=== PATIENT | female | born 1955 | race Caucasian/White ===

== ENCOUNTER 2021-02-27 09:25 | Inpatient (IN) | payer MEDICARE, SELFPAY ==
[2021-02-27] MEDS ORDERED: Acetaminophen 500 MG TAB PO PRN (11:06)
[2021-02-27] MEDS ORDERED: Ondansetron PF 4 MG/2 ML Vial IVP PRN (11:06)
[2021-02-27] MEDS ORDERED: Ondansetron ODT 4 MG TAB SL PRN (11:06)
[2021-02-27] MEDS ORDERED: methylPREDNISolone Sod Succ/PF 125 MG/2 ML VIAL IVP SCH (12:00)
[2021-02-27 12:22] LABS: ALT (SGPT) 28 U/L (8-55); AST (SGOT) 65 U/L (5-34); Albumin 3.3 g/dL (3.4-4.8); Alkaline Phosphatase 59 U/L (40-110); Anion Gap 18 mmol/L (10-20); BUN (Urea Nitrogen) 32 mg/dL (9.8-20.1); Bilirubin, Total 0.3 mg/dL (0.2-1.2); CRP (Inflammatory) 10.52 mg/dL (= or < 0.5); Calc. Creatinine Clearance 0 mL/min (70-130); Calcium 8.4 mg/dL (7.8-10.44); Carbon Dioxide 16 mmol/L (23-31); Chloride 105 mmol/L (98-107); Globulin 4.2 g/dL (2.4-3.5); Glucose 115 mg/dL (80-115); Potassium 4.4 mmol/L (3.5-5.1); Protein, Total 7.5 g/dL (5.8-8.1); Sodium 135 mmol/L (136-145)
[2021-02-27] MEDS ORDERED: Famotidine 20 MG TAB PO SCH (13:00)
[2021-02-27] MEDS ORDERED: Colchicine 0.6 MG TAB PO SCH (13:00)
[2021-02-27] MEDS ORDERED: Enoxaparin Sodium 40 MG/0.4 ML SYRINGE SC SCH (13:00)
[2021-02-27] MEDS ORDERED: Ivermectin 3 MG TAB PO SCH (15:00)
[2021-02-27] MEDS: REMDESIVIR 100 MG in Sodium Chloride 0.9% 250 ML 230 ML IV SCH (15:21)
[2021-02-27 15:45] LABS: Hemoglobin 14.3 g/dL (12.0-16.0); Mean Corpuscular HGB CONC 33.7 g/dL (32.0-36.0); Mean Corpuscular Hemoglobin 32.9 pg (27.0-31.0); Mean Corpuscular Volume 97.7 fL (78.0-98.0); Mean Platelet Volume 6.9 fL (7.4-10.4); Platelet Count 382 thou/uL (130-400); Red Blood Cell (RBC) Count 4.34 mill/uL (4.20-5.40); White Blood Cell (WBC) Count 8.3 thou/uL (4.8-10.8)
[2021-02-27 16:07] LABS: Band 1 % (5-11); Lymphocytes 3 % (21-51); MDiff Complete? YES; Monocytes 4 % (0-10); Neutrophil 92 % (42-75); Platelet Morphology Comment Appears Adequate; RBC Morphology Normal
[2021-02-27] MEDS: methylPREDNISolone Sod Succ/PF 80 MG in Sodium Chloride 0.9% 250 ML 250 ML IVPB SCH (16:35)
[2021-02-27] MEDS ORDERED: TOCILIZUMAB IV SCH (17:00)
[2021-02-27] MEDS ORDERED: SODIUM CHLORIDE 0.9% IV SCH (17:00)
[2021-02-27] MEDS: Colchicine 0.6 MG TAB PO SCH (20:01)
[2021-02-27] MEDS: Lorazepam 0.5 MG TAB PO PRN (20:01)
[2021-02-27] MEDS: Cholecalciferol 1,000 UNITS (25 MCG) TAB PO SCH (20:01)
[2021-02-27] MEDS: Ascorbic Acid 500 mg Chewable Tablet PO SCH (20:01)
[2021-02-27] MEDS: Enoxaparin Sodium 40 MG/0.4 ML SYRINGE SC SCH (20:02)
[2021-02-27] MEDS: Famotidine 20 MG TAB PO SCH (20:02)
[2021-02-27] MEDS: Benzonatate 100 MG CAP PO PRN (21:02)
[2021-02-28] MEDS: guaiFENesin/Codeine 200 mg/20 mg 10 ml Cup PO PRN ×2 (00:32→18:30)
[2021-02-28 06:41] LABS: #Lymphocytes 0.6 thou/uL (1.20-3.40); #Monocytes 0.4 thou/uL (0.11-0.59); #Neutrophils 4.4 thou/uL (1.40-6.50); %Eosinophils 0.1 % (0.0-10.0); %Lymphocytes 11.4 % (21.0-51.0); %Monocytes 7.5 % (0.0-10.0); Hemoglobin 13.3 g/dL (12.0-16.0); Mean Corpuscular HGB CONC 32.4 g/dL (32.0-36.0); Mean Corpuscular Hemoglobin 31.7 pg (27.0-31.0); Mean Corpuscular Volume 98.1 fL (78.0-98.0); Mean Platelet Volume 7.4 fL (7.4-10.4); Platelet Count 369 thou/uL (130-400); Red Blood Cell (RBC) Count 4.18 mill/uL (4.20-5.40); White Blood Cell (WBC) Count 5.4 thou/uL (4.8-10.8)
[2021-02-28 06:57] LABS: Anion Gap 17 mmol/L (10-20); BUN (Urea Nitrogen) 33 mg/dL (9.8-20.1); Calc. Creatinine Clearance 90 mL/min (70-130); Calcium 8.2 mg/dL (7.8-10.44); Carbon Dioxide 22 mmol/L (23-31); Chloride 104 mmol/L (98-107); Glucose 138 mg/dL (80-115); Potassium 4.5 mmol/L (3.5-5.1); Sodium 138 mmol/L (136-145)
[2021-02-28] MEDS: Ascorbic Acid 500 mg Chewable Tablet PO SCH ×2 (07:57→20:23)
[2021-02-28] MEDS: Colchicine 0.6 MG TAB PO SCH ×2 (07:58→20:23)
[2021-02-28] MEDS: Enoxaparin Sodium 40 MG/0.4 ML SYRINGE SC SCH ×2 (07:58→20:22)
[2021-02-28] MEDS: Zinc Sulfate 220 MG CAP PO SCH (07:58)
[2021-02-28] MEDS: Famotidine 20 MG TAB PO SCH ×2 (07:58→20:23)
[2021-02-28] MEDS: Benzonatate 100 MG CAP PO PRN ×2 (12:44→18:30)
[2021-02-28] MEDS: methylPREDNISolone Sod Succ/PF 80 MG in Sodium Chloride 0.9% 250 ML 250 ML IVPB SCH (12:45)
[2021-02-28] MEDS: REMDESIVIR 100 MG in Sodium Chloride 0.9% 250 ML 230 ML IV SCH (15:39)
[2021-02-28] MEDS: Loperamide HCl 2 MG CAP PO PRN ×3 (15:40→20:23)
[2021-02-28] MEDS: Lorazepam 0.5 MG TAB PO PRN (20:22)
[2021-02-28] MEDS: Cholecalciferol 1,000 UNITS (25 MCG) TAB PO SCH (20:23)
[2021-03-01 03:29] LABS: #Lymphocytes 0.6 thou/uL (1.20-3.40); #Monocytes 0.7 thou/uL (0.11-0.59); #Neutrophils 7.5 thou/uL (1.40-6.50); %Basophils 0.1 % (0.0-1.0); %Eosinophils 0.2 % (0.0-10.0); %Lymphocytes 7.1 % (21.0-51.0); %Neutrophils 84.6 % (42.0-75.0); Hemoglobin 13.7 g/dL (12.0-16.0); Mean Corpuscular HGB CONC 33.7 g/dL (32.0-36.0); Mean Corpuscular Volume 97.7 fL (78.0-98.0); Mean Platelet Volume 7.1 fL (7.4-10.4); Platelet Count 378 thou/uL (130-400); RBC Distribution Width 12.8 % (11.5-14.5); Red Blood Cell (RBC) Count 4.15 mill/uL (4.20-5.40); White Blood Cell (WBC) Count 8.9 thou/uL (4.8-10.8)
[2021-03-01 03:54] LABS: ALT (SGPT) 80 U/L (8-55); AST (SGOT) 93 U/L (5-34); Albumin 3.3 g/dL (3.4-4.8); Alkaline Phosphatase 59 U/L (40-110); Anion Gap 17 mmol/L (10-20); BUN (Urea Nitrogen) 27 mg/dL (9.8-20.1); Bilirubin, Total 0.6 mg/dL (0.2-1.2); Calc. Creatinine Clearance 127 mL/min (70-130); Calcium 7.8 mg/dL (7.8-10.44); Carbon Dioxide 17 mmol/L (23-31); Chloride 106 mmol/L (98-107); Globulin 3.3 g/dL (2.4-3.5); Glucose 144 mg/dL (80-115); Potassium 4.1 mmol/L (3.5-5.1); Protein, Total 6.6 g/dL (5.8-8.1); Sodium 136 mmol/L (136-145)
[2021-03-01] MEDS: Zinc Sulfate 220 MG CAP PO SCH (09:11)
[2021-03-01] MEDS: Famotidine 20 MG TAB PO SCH ×2 (09:11→19:33)
[2021-03-01] MEDS: Colchicine 0.6 MG TAB PO SCH ×2 (09:11→19:33)
[2021-03-01] MEDS: Ascorbic Acid 500 mg Chewable Tablet PO SCH ×2 (09:11→19:32)
[2021-03-01] MEDS: Enoxaparin Sodium 40 MG/0.4 ML SYRINGE SC SCH ×2 (09:12→19:33)
[2021-03-01] MEDS: guaiFENesin/Codeine 200 mg/20 mg 10 ml Cup PO PRN ×2 (09:24→16:21)
[2021-03-01] MEDS: Benzonatate 100 MG CAP PO PRN ×2 (09:24→16:21)
[2021-03-01] MEDS: methylPREDNISolone Sod Succ/PF 80 MG in Sodium Chloride 0.9% 250 ML 250 ML IVPB SCH (16:16)
[2021-03-01] MEDS: REMDESIVIR 100 MG in Sodium Chloride 0.9% 250 ML 230 ML IV SCH (16:16)
[2021-03-01] MEDS: Lorazepam 0.5 MG TAB PO PRN (19:32)
[2021-03-01] MEDS: Loperamide HCl 2 MG CAP PO PRN (19:33)
[2021-03-01] MEDS: Cholecalciferol 1,000 UNITS (25 MCG) TAB PO SCH (19:33)
[2021-03-02 03:26] LABS: #Lymphocytes 0.6 thou/uL (1.20-3.40); #Monocytes 0.5 thou/uL (0.11-0.59); #Neutrophils 7.8 thou/uL (1.40-6.50); %Eosinophils 0.2 % (0.0-10.0); %Lymphocytes 6.6 % (21.0-51.0); %Monocytes 6.1 % (0.0-10.0); %Neutrophils 87.1 % (42.0-75.0); Hemoglobin 13.7 g/dL (12.0-16.0); Mean Corpuscular HGB CONC 33.4 g/dL (32.0-36.0); Mean Corpuscular Hemoglobin 32.5 pg (27.0-31.0); Mean Corpuscular Volume 97.2 fL (78.0-98.0); Mean Platelet Volume 6.8 fL (7.4-10.4); Platelet Count 435 thou/uL (130-400); RBC Distribution Width 12.5 % (11.5-14.5); Red Blood Cell (RBC) Count 4.22 mill/uL (4.20-5.40); White Blood Cell (WBC) Count 8.9 thou/uL (4.8-10.8)
[2021-03-02 03:52] LABS: ALT (SGPT) 289 U/L (8-55); AST (SGOT) 172 U/L (5-34); Alkaline Phosphatase 66 U/L (40-110); Anion Gap 14 mmol/L (10-20); BUN (Urea Nitrogen) 24 mg/dL (9.8-20.1); Bilirubin, Total 0.9 mg/dL (0.2-1.2); CRP (Inflammatory) 1.91 mg/dL (= or < 0.5); Calc. Creatinine Clearance 133 mL/min (70-130); Calcium 7.8 mg/dL (7.8-10.44); Carbon Dioxide 20 mmol/L (23-31); Chloride 104 mmol/L (98-107); Globulin 3.2 g/dL (2.4-3.5); Glucose 139 mg/dL (80-115); Protein, Total 6.2 g/dL (5.8-8.1); Sodium 134 mmol/L (136-145)
[2021-03-02] MEDS ORDERED: Loratadine 10 MG TAB PO PRN (08:24)
[2021-03-02] MEDS ORDERED: Sodium Chloride 0.65% Nasal 44 ML BOT EA NARE PRN (08:24)
[2021-03-02] MEDS ORDERED: Bisacodyl 5 MG TAB PO PRN (08:24)
[2021-03-02] MEDS ORDERED: Cepastat Lozenges 1 LOZ PO PRN (08:24)
[2021-03-02] MEDS ORDERED: Calcium Carbonate 500 MG ChewTAB PO PRN (08:24)
[2021-03-02] MEDS ORDERED: Senokot S 8.6-50 MG TAB PO PRN (08:24)
[2021-03-02] MEDS: Enoxaparin Sodium 40 MG/0.4 ML SYRINGE SC SCH ×2 (09:46→20:00)
[2021-03-02] MEDS: Zinc Sulfate 220 MG CAP PO SCH (09:46)
[2021-03-02] MEDS: Ascorbic Acid 500 mg Chewable Tablet PO SCH ×2 (09:46→20:01)
[2021-03-02] MEDS: Colchicine 0.6 MG TAB PO SCH ×2 (09:46→20:02)
[2021-03-02] MEDS: Famotidine 20 MG TAB PO SCH ×2 (09:46→20:01)
[2021-03-02] MEDS: Benzonatate 100 MG CAP PO PRN ×3 (09:47→21:30)
[2021-03-02] MEDS: guaiFENesin/Codeine 200 mg/20 mg 10 ml Cup PO PRN ×3 (09:49→23:41)
[2021-03-02] MEDS: Loperamide HCl 2 MG CAP PO PRN ×3 (11:27→20:01)
[2021-03-02] MEDS: REMDESIVIR 100 MG in Sodium Chloride 0.9% 250 ML 230 ML IV SCH (15:09)
[2021-03-02] MEDS: methylPREDNISolone Sod Succ/PF 80 MG in Sodium Chloride 0.9% 250 ML 250 ML IVPB SCH (15:10)
[2021-03-02] MEDS: Cholecalciferol 1,000 UNITS (25 MCG) TAB PO SCH (20:01)
[2021-03-02] MEDS: Zolpidem Tartrate 5 MG TAB PO PRN (21:30)
[2021-03-03 03:54] LABS: #Eosinphils 0.1 thou/uL (0.0-0.7); #Lymphocytes 0.7 thou/uL (1.20-3.40); #Monocytes 0.5 thou/uL (0.11-0.59); #Neutrophils 7.9 thou/uL (1.40-6.50); %Eosinophils 0.6 % (0.0-10.0); %Lymphocytes 7.5 % (21.0-51.0); %Monocytes 5.3 % (0.0-10.0); %Neutrophils 86.6 % (42.0-75.0); Hemoglobin 14.2 g/dL (12.0-16.0); Mean Corpuscular HGB CONC 34.2 g/dL (32.0-36.0); Mean Corpuscular Hemoglobin 33.1 pg (27.0-31.0); Mean Corpuscular Volume 96.6 fL (78.0-98.0); Platelet Count 468 thou/uL (130-400); RBC Distribution Width 12.5 % (11.5-14.5); Red Blood Cell (RBC) Count 4.29 mill/uL (4.20-5.40); White Blood Cell (WBC) Count 9.1 thou/uL (4.8-10.8)
[2021-03-03 04:15] LABS: ALT (SGPT) 296 U/L (8-55); AST (SGOT) 111 U/L (5-34); Albumin 3.2 g/dL (3.4-4.8); Alkaline Phosphatase 74 U/L (40-110); Anion Gap 15 mmol/L (10-20); BUN (Urea Nitrogen) 21 mg/dL (9.8-20.1); Bilirubin, Total 0.8 mg/dL (0.2-1.2); Calc. Creatinine Clearance 131 mL/min (70-130); Calcium 7.7 mg/dL (7.8-10.44); Carbon Dioxide 21 mmol/L (23-31); Chloride 101 mmol/L (98-107); Glucose 133 mg/dL (80-115); Potassium 3.9 mmol/L (3.5-5.1); Protein, Total 6.2 g/dL (5.8-8.1); Sodium 133 mmol/L (136-145)
[2021-03-03] MEDS ORDERED: Albuterol Sulfate 2.5 mg/3 ml Neb NEB PRN (07:38)
[2021-03-03] MEDS: Loperamide HCl 2 MG CAP PO PRN ×3 (09:41→21:19)
[2021-03-03] MEDS: Benzonatate 100 MG CAP PO PRN ×3 (09:41→21:19)
[2021-03-03] MEDS: Enoxaparin Sodium 40 MG/0.4 ML SYRINGE SC SCH ×2 (09:41→21:19)
[2021-03-03] MEDS: guaiFENesin/Codeine 200 mg/20 mg 10 ml Cup PO PRN ×3 (09:41→22:36)
[2021-03-03] MEDS: Ascorbic Acid 500 mg Chewable Tablet PO SCH ×2 (09:41→21:19)
[2021-03-03] MEDS: Zinc Sulfate 220 MG CAP PO SCH (09:41)
[2021-03-03] MEDS: Colchicine 0.6 MG TAB PO SCH (09:41)
[2021-03-03] MEDS: methylPREDNISolone Sod Succ/PF 80 MG in Sodium Chloride 0.9% 250 ML 250 ML IVPB SCH (16:23)
[2021-03-03] MEDS: Zolpidem Tartrate 5 MG TAB PO PRN (21:19)
[2021-03-03] MEDS: Colchicine 0.3 MG TAB PO SCH (21:19)
[2021-03-03] MEDS: Cholecalciferol 1,000 UNITS (25 MCG) TAB PO SCH (21:19)
[2021-03-04] MEDS: guaiFENesin/Codeine 200 mg/20 mg 10 ml Cup PO PRN ×2 (04:19→16:37)
[2021-03-04 04:35] LABS: ALT (SGPT) 282 U/L (8-55); AST (SGOT) 101 U/L (5-34); Albumin 3.2 g/dL (3.4-4.8); Alkaline Phosphatase 76 U/L (40-110); Anion Gap 18 mmol/L (10-20); BUN (Urea Nitrogen) 23 mg/dL (9.8-20.1); Bilirubin, Total 0.6 mg/dL (0.2-1.2); CRP (Inflammatory) 0.64 mg/dL (= or < 0.5); Calc. Creatinine Clearance 119 mL/min (70-130); Carbon Dioxide 21 mmol/L (23-31); Chloride 100 mmol/L (98-107); Globulin 3.5 g/dL (2.4-3.5); Glucose 136 mg/dL (80-115); Magnesium 2.2 mg/dL (1.6-2.6); Potassium 4.9 mmol/L (3.5-5.1); Protein, Total 6.7 g/dL (5.8-8.1); Sodium 134 mmol/L (136-145)
[2021-03-04 04:49] LABS: Phosphorus 3.6 mg/dL (2.3-4.7)
[2021-03-04 05:02] LABS: Band 5 % (5-11); Lymphocytes 5 % (21-51); MDiff Complete? YES; Monocytes 8 % (0-10); Neutrophil 82 % (42-75)
[2021-03-04 05:03] LABS: Hemoglobin 14.7 g/dL (12.0-16.0); Mean Corpuscular HGB CONC 34.1 g/dL (32.0-36.0); Mean Corpuscular Hemoglobin 33.1 pg (27.0-31.0); Platelet Count 492 thou/uL (130-400); RBC Distribution Width 12.6 % (11.5-14.5); Red Blood Cell (RBC) Count 4.44 mill/uL (4.20-5.40); White Blood Cell (WBC) Count 13.6 thou/uL (4.8-10.8)
[2021-03-04] MEDS: Enoxaparin Sodium 40 MG/0.4 ML SYRINGE SC SCH ×2 (09:36→22:31)
[2021-03-04] MEDS: Ascorbic Acid 500 mg Chewable Tablet PO SCH ×2 (09:36→22:30)
[2021-03-04] MEDS: Zinc Sulfate 220 MG CAP PO SCH (09:36)
[2021-03-04] MEDS: Loperamide HCl 2 MG CAP PO PRN ×3 (09:36→22:31)
[2021-03-04] MEDS: Benzonatate 100 MG CAP PO PRN ×3 (09:36→22:31)
[2021-03-04] MEDS: Colchicine 0.3 MG TAB PO SCH ×2 (09:41→22:31)
[2021-03-04] MEDS: methylPREDNISolone Sod Succ/PF 80 MG in Sodium Chloride 0.9% 250 ML 250 ML IVPB SCH (16:37)
[2021-03-04] MEDS: Zolpidem Tartrate 5 MG TAB PO PRN (22:30)
[2021-03-04] MEDS: Cholecalciferol 1,000 UNITS (25 MCG) TAB PO SCH (22:31)
[2021-03-05] MEDS: guaiFENesin/Codeine 200 mg/20 mg 10 ml Cup PO PRN ×3 (01:29→21:20)
[2021-03-05 04:18] LABS: Anion Gap 18 mmol/L (10-20); BUN (Urea Nitrogen) 26 mg/dL (9.8-20.1); Calc. Creatinine Clearance 119 mL/min (70-130); Carbon Dioxide 20 mmol/L (23-31); Chloride 99 mmol/L (98-107); Glucose 199 mg/dL (80-115); Sodium 133 mmol/L (136-145)
[2021-03-05 04:43] LABS: Band 5 % (5-11); Eosinophils 1 % (0-10); Hemoglobin 14.9 g/dL (12.0-16.0); Lymphocytes 4 % (21-51); MDiff Complete? YES; Mean Corpuscular HGB CONC 34.6 g/dL (32.0-36.0); Mean Corpuscular Hemoglobin 33.3 pg (27.0-31.0); Mean Corpuscular Volume 96.2 fL (78.0-98.0); Metamyelocyte 1 % (0-0); Monocytes 4 % (0-10); Neutrophil 85 % (42-75); Platelet Count 529 thou/uL (130-400); RBC Distribution Width 12.5 % (11.5-14.5); Red Blood Cell (RBC) Count 4.47 mill/uL (4.20-5.40); White Blood Cell (WBC) Count 16.4 thou/uL (4.8-10.8)
[2021-03-05] MEDS: Benzonatate 100 MG CAP PO PRN ×2 (08:49→20:35)
[2021-03-05] MEDS: Loperamide HCl 2 MG CAP PO PRN (08:49)
[2021-03-05] MEDS: Colchicine 0.3 MG TAB PO SCH ×2 (10:56→20:34)
[2021-03-05] MEDS: Zinc Sulfate 220 MG CAP PO SCH (10:56)
[2021-03-05] MEDS: Enoxaparin Sodium 40 MG/0.4 ML SYRINGE SC SCH ×2 (10:56→20:34)
[2021-03-05] MEDS: Ascorbic Acid 500 mg Chewable Tablet PO SCH ×2 (10:56→20:34)
[2021-03-05] MEDS: methylPREDNISolone Sod Succ/PF 80 MG in Sodium Chloride 0.9% 250 ML 250 ML IVPB SCH (15:20)
[2021-03-05] MEDS: Cholecalciferol 1,000 UNITS (25 MCG) TAB PO SCH (20:35)
[2021-03-05] MEDS: Zolpidem Tartrate 5 MG TAB PO PRN (20:35)
[2021-03-06 03:36] LABS: ALT (SGPT) 160 U/L (8-55); AST (SGOT) 46 U/L (5-34); Albumin 3.2 g/dL (3.4-4.8); Alkaline Phosphatase 83 U/L (40-110); Anion Gap 18 mmol/L (10-20); BUN (Urea Nitrogen) 22 mg/dL (9.8-20.1); Bilirubin, Total 0.5 mg/dL (0.2-1.2); CRP (Inflammatory) Less than 0.50 mg/dL (= or < 0.5); Calc. Creatinine Clearance 122 mL/min (70-130); Carbon Dioxide 19 mmol/L (23-31); Chloride 100 mmol/L (98-107); Globulin 3.2 g/dL (2.4-3.5); Glucose 186 mg/dL (80-115); Potassium 4.2 mmol/L (3.5-5.1); Protein, Total 6.4 g/dL (5.8-8.1); Sodium 133 mmol/L (136-145)
[2021-03-06 04:02] LABS: Band 1 % (5-11); Hemoglobin 14.9 g/dL (12.0-16.0); Lymphocytes 4 % (21-51); MDiff Complete? YES; Mean Corpuscular HGB CONC 33.8 g/dL (32.0-36.0); Mean Corpuscular Hemoglobin 32.6 pg (27.0-31.0); Mean Corpuscular Volume 96.4 fL (78.0-98.0); Mean Platelet Volume 6.7 fL (7.4-10.4); Monocytes 2 % (0-10); Neutrophil 93 % (42-75); Platelet Count 563 thou/uL (130-400); Red Blood Cell (RBC) Count 4.58 mill/uL (4.20-5.40); White Blood Cell (WBC) Count 18.9 thou/uL (4.8-10.8)
[2021-03-06] MEDS: Benzonatate 100 MG CAP PO PRN ×3 (05:31→17:38)
[2021-03-06] MEDS: guaiFENesin/Codeine 200 mg/20 mg 10 ml Cup PO PRN ×3 (05:31→17:38)
[2021-03-06] MEDS: Ascorbic Acid 500 mg Chewable Tablet PO SCH ×2 (08:13→20:57)
[2021-03-06] MEDS: Colchicine 0.3 MG TAB PO SCH ×2 (08:13→20:57)
[2021-03-06] MEDS: Zinc Sulfate 220 MG CAP PO SCH (08:13)
[2021-03-06] MEDS: Enoxaparin Sodium 40 MG/0.4 ML SYRINGE SC SCH ×2 (08:14→20:58)
[2021-03-06] MEDS: Ivermectin 3 MG TAB PO SCH (11:13)
[2021-03-06] MEDS: methylPREDNISolone Sod Succ/PF 80 MG in Sodium Chloride 0.9% 250 ML 250 ML IVPB SCH (17:38)
[2021-03-06] MEDS: Lorazepam 0.5 MG TAB PO PRN (20:58)
[2021-03-06] MEDS: Cholecalciferol 1,000 UNITS (25 MCG) TAB PO SCH (20:58)
[2021-03-06] MEDS: Zolpidem Tartrate 5 MG TAB PO PRN (20:58)
[2021-03-07] MEDS ORDERED: traZODone HCl 50 MG TAB PO PRN (01:22)
[2021-03-07] MEDS ORDERED: Metoprolol Tartrate 5 MG/5 ML VIAL IVP PRN (01:41)
[2021-03-07 03:47] LABS: ALT (SGPT) 119 U/L (8-55); AST (SGOT) 46 U/L (5-34); Albumin 3.2 g/dL (3.4-4.8); Alkaline Phosphatase 89 U/L (40-110); Anion Gap 15 mmol/L (10-20); BUN (Urea Nitrogen) 24 mg/dL (9.8-20.1); Bilirubin, Total 0.6 mg/dL (0.2-1.2); CRP (Inflammatory) Less than 0.50 mg/dL (= or < 0.5); Calc. Creatinine Clearance 127 mL/min (70-130); Calcium 8.2 mg/dL (7.8-10.44); Carbon Dioxide 24 mmol/L (23-31); Chloride 97 mmol/L (98-107); Globulin 2.9 g/dL (2.4-3.5); Glucose 146 mg/dL (80-115); Magnesium 2.1 mg/dL (1.6-2.6); Phosphorus 3.7 mg/dL (2.3-4.7); Potassium 4.2 mmol/L (3.5-5.1); Protein, Total 6.1 g/dL (5.8-8.1); Sodium 132 mmol/L (136-145)
[2021-03-07 04:32] LABS: Band 7 % (5-11); Hemoglobin 14.4 g/dL (12.0-16.0); Lymphocytes 3 % (21-51); MDiff Complete? YES; Mean Corpuscular HGB CONC 34.3 g/dL (32.0-36.0); Mean Corpuscular Hemoglobin 32.9 pg (27.0-31.0); Mean Corpuscular Volume 95.8 fL (78.0-98.0); Mean Platelet Volume 6.6 fL (7.4-10.4); Monocytes 2 % (0-10); Neutrophil 88 % (42-75); Platelet Count 535 thou/uL (130-400); RBC Distribution Width 12.8 % (11.5-14.5); Red Blood Cell (RBC) Count 4.39 mill/uL (4.20-5.40); White Blood Cell (WBC) Count 22.1 thou/uL (4.8-10.8)
[2021-03-07] MEDS: Benzonatate 100 MG CAP PO PRN ×3 (04:42→20:11)
[2021-03-07] MEDS: guaiFENesin/Codeine 200 mg/20 mg 10 ml Cup PO PRN ×3 (04:42→20:16)
[2021-03-07] MEDS: Enoxaparin Sodium 40 MG/0.4 ML SYRINGE SC SCH ×2 (08:29→20:11)
[2021-03-07] MEDS: Zinc Sulfate 220 MG CAP PO SCH (08:29)
[2021-03-07] MEDS: Colchicine 0.3 MG TAB PO SCH ×2 (08:29→20:11)
[2021-03-07] MEDS: Ascorbic Acid 500 mg Chewable Tablet PO SCH ×2 (08:29→20:11)
[2021-03-07] MEDS: Ivermectin 3 MG TAB PO SCH (11:06)
[2021-03-07] MEDS: methylPREDNISolone Sod Succ/PF 80 MG in Sodium Chloride 0.9% 250 ML 250 ML IVPB SCH (14:31)
[2021-03-07] MEDS: Cholecalciferol 1,000 UNITS (25 MCG) TAB PO SCH (20:11)
[2021-03-07] MEDS: Zolpidem Tartrate 5 MG TAB PO PRN (21:47)
[2021-03-07] MEDS: Lorazepam 0.5 MG TAB PO PRN (21:47)
[2021-03-08 05:06] LABS: Hemoglobin 14.3 g/dL (12.0-16.0); Mean Corpuscular HGB CONC 32.5 g/dL (32.0-36.0); Mean Corpuscular Hemoglobin 31.3 pg (27.0-31.0); Mean Corpuscular Volume 96.4 fL (78.0-98.0); Mean Platelet Volume 6.6 fL (7.4-10.4); Platelet Count 501 thou/uL (130-400); RBC Distribution Width 13.2 % (11.5-14.5); Red Blood Cell (RBC) Count 4.57 mill/uL (4.20-5.40); White Blood Cell (WBC) Count 18.3 thou/uL (4.8-10.8)
[2021-03-08 05:17] LABS: Anion Gap 15 mmol/L (10-20); BUN (Urea Nitrogen) 23 mg/dL (9.8-20.1); Calc. Creatinine Clearance 137 mL/min (70-130); Calcium 8.1 mg/dL (7.8-10.44); Carbon Dioxide 26 mmol/L (23-31); Chloride 97 mmol/L (98-107); Glucose 140 mg/dL (80-115); Potassium 4.4 mmol/L (3.5-5.1); Sodium 134 mmol/L (136-145)
[2021-03-08 05:24] LABS: Band 15 % (5-11); Lymphocytes 5 % (21-51); MDiff Complete? YES; Monocytes 1 % (0-10); Myelocyte 1 % (0-0); Neutrophil 78 % (42-75)
[2021-03-08] MEDS: Colchicine 0.3 MG TAB PO SCH ×2 (07:57→20:53)
[2021-03-08] MEDS: Ivermectin 3 MG TAB PO SCH (07:57)
[2021-03-08] MEDS: Zinc Sulfate 220 MG CAP PO SCH (07:57)
[2021-03-08] MEDS: Ascorbic Acid 500 mg Chewable Tablet PO SCH ×2 (07:57→20:53)
[2021-03-08] MEDS: Enoxaparin Sodium 40 MG/0.4 ML SYRINGE SC SCH ×2 (07:58→20:53)
[2021-03-08] MEDS ORDERED: hydrALAZINE 25 MG TAB PO PRN (09:36)
[2021-03-08] MEDS: methylPREDNISolone Sod Succ/PF 80 MG in Sodium Chloride 0.9% 250 ML 250 ML IVPB SCH (15:06)
[2021-03-08] MEDS: Benzonatate 100 MG CAP PO PRN ×2 (16:17→23:56)
[2021-03-08] MEDS: guaiFENesin/Codeine 200 mg/20 mg 10 ml Cup PO PRN ×2 (16:19→23:56)
[2021-03-08] MEDS: Cholecalciferol 1,000 UNITS (25 MCG) TAB PO SCH (20:53)
[2021-03-08] MEDS: Zolpidem Tartrate 5 MG TAB PO PRN (23:56)
[2021-03-09] MEDS: Enoxaparin Sodium 40 MG/0.4 ML SYRINGE SC SCH ×2 (08:32→20:48)
[2021-03-09] MEDS: Colchicine 0.3 MG TAB PO SCH ×2 (08:32→18:57)
[2021-03-09] MEDS: Ascorbic Acid 500 mg Chewable Tablet PO SCH ×2 (08:32→18:57)
[2021-03-09] MEDS: Zinc Sulfate 220 MG CAP PO SCH (08:32)
[2021-03-09] MEDS: guaiFENesin/Codeine 200 mg/20 mg 10 ml Cup PO PRN (08:33)
[2021-03-09] MEDS: Ivermectin 3 MG TAB PO SCH (08:33)
[2021-03-09] MEDS: Benzonatate 100 MG CAP PO PRN (08:33)
[2021-03-09] MEDS ORDERED: PROPOFOL 20 ML ONE (13:19)
[2021-03-09] MEDS ORDERED: Succinylcholine 200 MG/10 ml SYRINGE FS ONE (13:20)
[2021-03-09] MEDS ORDERED: Propofol 1,000 MG/100 ML VIAL IV ONE (13:24)
[2021-03-09] MEDS ORDERED: Vecuronium 10 MG VIAL ONE ×2 (13:50→14:44)
[2021-03-09] MEDS ORDERED: Lorazepam 2 MG/ML VIAL ONE (13:52)
[2021-03-09] MEDS ORDERED: Fentanyl CADD 100 ML ONE (14:39)
[2021-03-09] MEDS ORDERED: DISCONTINUE PREVIOUS NARCOTIC PAIN MEDICATIONS AND BENZODIAZEPINES FS SCH (14:45)
[2021-03-09] MEDS ORDERED: Fentanyl BOLUS 250 ML IVPB PRN (14:45)
[2021-03-09] MEDS ORDERED: Propofol BOLUS 1,000 MG/100 ML VIAL IV PRN (14:45)
[2021-03-09] MEDS: Fentanyl CADD 100 ML IV SCH (14:46)
[2021-03-09] MEDS: Vecuronium 10 MG VIAL IV PRN ×3 (15:20→22:24)
[2021-03-09] MEDS: methylPREDNISolone Sod Succ/PF 80 MG in Sodium Chloride 0.9% 250 ML 250 ML IVPB SCH (15:21)
[2021-03-09 15:24] LABS: Actual Bicarbonate (HCO3a) 28.5 mEq/L (22-28); Base Excess (BEa) 1.9 mEq/L (-2.0 to +3.0); CO2 Tension 52.1 mmHg (35.0-45.0); Calcium, Ionized (arterial) 1.08 mmol/L (1.12-1.30); Potassium - ABG Lab 4.06 mmol/L (3.70-5.30); pH, Arterial 7.36 (7.35-7.45)
[2021-03-09 15:25] LABS: O2 Tension (PaO2), arterial 52.7 mmHg (> 80.0); Puncture Site RRA
[2021-03-09 15:26] LABS: ALV-art Gradient 595.175 mmHg (0-20)
[2021-03-09] MEDS: Propofol 1,000 MG/100 ML VIAL IV PRN (17:59)
[2021-03-09] MEDS: Cholecalciferol 1,000 UNITS (25 MCG) TAB PO SCH (18:57)
[2021-03-09] MEDS: Lorazepam 2 MG/ML VIAL SLOW IVP PRN (22:24)
[2021-03-10] MEDS: Vecuronium 10 MG VIAL IV PRN ×4 (00:29→19:40)
[2021-03-10] MEDS: Propofol 1,000 MG/100 ML VIAL IV PRN ×6 (01:04→21:07)
[2021-03-10] MEDS: Lorazepam 2 MG/ML VIAL SLOW IVP PRN ×3 (01:33→06:41)
[2021-03-10] MEDS ORDERED: Fentanyl CADD 100 ML ONE ×2 (02:26→16:45)
[2021-03-10] MEDS: Fentanyl CADD 100 ML IV SCH (03:20)
[2021-03-10 07:32] LABS: Actual Bicarbonate (HCO3a) 31.5 mEq/L (22-28); Base Excess (BEa) 3.3 mEq/L (-2.0 to +3.0); Calcium, Ionized (arterial) 1.11 mmol/L (1.12-1.30); Carboxyhemoglobin (COHb) 0.7 gm% (0.0-3.0); Hemoglobin (Hb) 13.6 g/dL (12.0-16.0); Potassium - ABG Lab 4.26 mmol/L (3.70-5.30)
[2021-03-10 07:33] LABS: CO2 Tension 64.8 mmHg (35.0-45.0); O2 Tension (PaO2), arterial 56.3 mmHg (> 80.0); Puncture Site LRA
[2021-03-10 07:58] LABS: #Eosinphils 0.2 thou/uL (0.0-0.7); #Lymphocytes 0.3 thou/uL (1.20-3.40); #Monocytes 0.4 thou/uL (0.11-0.59); #Neutrophils 17.9 thou/uL (1.40-6.50); %Basophils 0.1 % (0.0-1.0); %Eosinophils 0.8 % (0.0-10.0); %Lymphocytes 1.5 % (21.0-51.0); %Neutrophils 95.5 % (42.0-75.0); Hemoglobin 13.4 g/dL (12.0-16.0); Mean Corpuscular HGB CONC 33.4 g/dL (32.0-36.0); Mean Corpuscular Hemoglobin 33.1 pg (27.0-31.0); Platelet Count 329 thou/uL (130-400); RBC Distribution Width 13.3 % (11.5-14.5); Red Blood Cell (RBC) Count 4.07 mill/uL (4.20-5.40); White Blood Cell (WBC) Count 18.8 thou/uL (4.8-10.8)
[2021-03-10 08:04] LABS: Anion Gap 15 mmol/L (10-20); BUN (Urea Nitrogen) 22 mg/dL (9.8-20.1); Calc. Creatinine Clearance 149 mL/min (70-130); Calcium 7.8 mg/dL (7.8-10.44); Carbon Dioxide 25 mmol/L (23-31); Chloride 102 mmol/L (98-107); Glucose 133 mg/dL (80-115); Potassium 5.1 mmol/L (3.5-5.1); Sodium 137 mmol/L (136-145)
[2021-03-10] MEDS: Zinc Sulfate 220 MG CAP PO SCH (08:07)
[2021-03-10] MEDS: Ascorbic Acid 500 mg Chewable Tablet PO SCH ×2 (08:07→21:03)
[2021-03-10] MEDS: Enoxaparin Sodium 40 MG/0.4 ML SYRINGE SC SCH ×2 (08:08→21:02)
[2021-03-10] MEDS: Colchicine 0.3 MG TAB PO SCH ×2 (09:41→21:03)
[2021-03-10] MEDS: Ivermectin 3 MG TAB PO SCH (09:41)
[2021-03-10] MEDS: methylPREDNISolone Sod Succ/PF 80 MG in Sodium Chloride 0.9% 250 ML 250 ML IVPB SCH (18:05)
[2021-03-10] MEDS: Cholecalciferol 1,000 UNITS (25 MCG) TAB PO SCH (21:27)
[2021-03-11] MEDS: Vecuronium 10 MG VIAL IV PRN ×7 (00:40→20:44)
[2021-03-11] MEDS: Propofol 1,000 MG/100 ML VIAL IV PRN ×6 (00:55→22:34)
[2021-03-11] MEDS ORDERED: Sterile Water 10 ML ONE ×2 (03:51→19:34)
[2021-03-11 04:52] LABS: #Eosinphils 0.1 thou/uL (0.0-0.7); #Lymphocytes 0.3 thou/uL (1.20-3.40); #Monocytes 0.4 thou/uL (0.11-0.59); #Neutrophils 14.6 thou/uL (1.40-6.50); %Basophils 0.1 % (0.0-1.0); %Eosinophils 0.4 % (0.0-10.0); %Lymphocytes 1.9 % (21.0-51.0); %Monocytes 2.8 % (0.0-10.0); %Neutrophils 94.8 % (42.0-75.0); Hemoglobin 13.1 g/dL (12.0-16.0); Mean Corpuscular HGB CONC 32.7 g/dL (32.0-36.0); Mean Corpuscular Hemoglobin 32.7 pg (27.0-31.0); Mean Platelet Volume 6.9 fL (7.4-10.4); Platelet Count 289 thou/uL (130-400); Red Blood Cell (RBC) Count 4.01 mill/uL (4.20-5.40); White Blood Cell (WBC) Count 15.4 thou/uL (4.8-10.8)
[2021-03-11 05:10] LABS: Anion Gap 10 mmol/L (10-20); BUN (Urea Nitrogen) 23 mg/dL (9.8-20.1); Calc. Creatinine Clearance 151 mL/min (70-130); Calcium 7.9 mg/dL (7.8-10.44); Carbon Dioxide 31 mmol/L (23-31); Chloride 100 mmol/L (98-107); Glucose 137 mg/dL (80-115); Potassium 4.4 mmol/L (3.5-5.1); Sodium 137 mmol/L (136-145)
[2021-03-11] MEDS ORDERED: Fentanyl CADD 100 ML ONE (05:25)
[2021-03-11] MEDS: Fentanyl CADD 100 ML IV SCH (05:26)
[2021-03-11] MEDS: Lorazepam 2 MG/ML VIAL SLOW IVP PRN ×5 (07:15→20:44)
[2021-03-11] MEDS: Zinc Sulfate 220 MG CAP PO SCH (07:15)
[2021-03-11] MEDS: Enoxaparin Sodium 40 MG/0.4 ML SYRINGE SC SCH ×2 (07:16→20:46)
[2021-03-11] MEDS: Ascorbic Acid 500 mg Chewable Tablet PO SCH ×2 (07:16→20:45)
[2021-03-11] MEDS: Ivermectin 3 MG TAB PO SCH (08:59)
[2021-03-11] MEDS: Colchicine 0.3 MG TAB PO SCH ×2 (09:00→20:34)
[2021-03-11] MEDS: methylPREDNISolone Sod Succ/PF 80 MG in Sodium Chloride 0.9% 250 ML 250 ML IVPB SCH ×2 (13:53→16:35)
[2021-03-11] MEDS: Cholecalciferol 1,000 UNITS (25 MCG) TAB PO SCH ×2 (20:35→20:45)
[2021-03-12] MEDS: Fentanyl CADD 100 ML IV SCH ×2 (01:15→20:06)
[2021-03-12] MEDS: Lorazepam 2 MG/ML VIAL SLOW IVP PRN ×5 (01:53→21:00)
[2021-03-12] MEDS ORDERED: Sterile Water 10 ML ONE ×2 (04:54→04:55)
[2021-03-12] MEDS: Vecuronium 10 MG VIAL IV PRN ×2 (05:10→10:37)
[2021-03-12] MEDS: Colchicine 0.3 MG TAB PO SCH (09:26)
[2021-03-12] MEDS: Enoxaparin Sodium 40 MG/0.4 ML SYRINGE SC SCH (09:27)
[2021-03-12] MEDS: Ascorbic Acid 500 mg Chewable Tablet PO SCH ×2 (09:27→20:24)
[2021-03-12] MEDS: Zinc Sulfate 220 MG CAP PO SCH (09:27)
[2021-03-12] MEDS: Ivermectin 3 MG TAB PO SCH (09:29)
[2021-03-12] MEDS ORDERED: Polyethylene Glycol OPTH DROP 15 ML BOT EA EYE SCH (13:30)
[2021-03-12] MEDS ORDERED: Ivermectin 3 MG TAB PO SCH (14:24)
[2021-03-12 14:28] LABS: Actual Bicarbonate (HCO3a) 32.4 mEq/L (22-28); Base Excess (BEa) 6.4 mEq/L (-2.0 to +3.0); CO2 Tension 52.8 mmHg (35.0-45.0); Calcium, Ionized (arterial) 1.12 mmol/L (1.12-1.30); Hemoglobin (Hb) 12.9 g/dL (12.0-16.0); Potassium - ABG Lab 4.01 mmol/L (3.70-5.30); pH, Arterial 7.41 (7.35-7.45)
[2021-03-12] MEDS ORDERED: Aspirin 81 mg Enteric Coated Tablet PO SCH (14:30)
[2021-03-12 14:32] LABS: O2 Tension (PaO2), arterial 58.8 mmHg (> 80.0); Puncture Site RRA
[2021-03-12] MEDS: Furosemide 40 MG/4 ML VIAL SLOW IVP SCH (14:57)
[2021-03-12] MEDS: Propofol 1,000 MG/100 ML VIAL IV PRN ×2 (17:50→21:00)
[2021-03-12] MEDS: Polyethylene Glycol OPTH DROP 15 ML BOT EA EYE SCH ×2 (17:51→20:22)
[2021-03-12] MEDS: methylPREDNISolone Sod Succ/PF 125 MG/2 ML VIAL IVP SCH (20:12)
[2021-03-12] MEDS: Enoxaparin Sodium 100 MG/ML SYRINGE SC SCH (20:20)
[2021-03-12] MEDS: Cholecalciferol 1,000 UNITS (25 MCG) TAB PO SCH (20:23)
[2021-03-12] MEDS: Melatonin 3 MG TAB PO SCH (20:26)
[2021-03-12] MEDS: Colchicine 0.6 MG TAB PO SCH (20:26)
[2021-03-12] MEDS: Famotidine 20 MG TAB PO SCH (20:27)
[2021-03-12] MEDS: ASCORBIC ACID IVPB SCH (21:00)
[2021-03-12] MEDS: SODIUM CHLORIDE 0.9% IVPB SCH (21:00)
[2021-03-13] MEDS: Propofol 1,000 MG/100 ML VIAL IV PRN ×2 (01:11→21:41)
[2021-03-13] MEDS: Polyethylene Glycol OPTH DROP 15 ML BOT EA EYE SCH ×6 (01:13→21:41)
[2021-03-13] MEDS ORDERED: Sterile Water 10 ML ONE (01:26)
[2021-03-13] MEDS: Vecuronium 10 MG VIAL IV PRN ×4 (01:34→21:52)
[2021-03-13] MEDS: Lorazepam 2 MG/ML VIAL SLOW IVP PRN ×3 (01:34→21:52)
[2021-03-13 04:10] LABS: Hemoglobin 12.4 g/dL (12.0-16.0); Platelet Count 288 thou/uL (130-400)
[2021-03-13 04:27] LABS: Calc. Creatinine Clearance 146 mL/min (70-130)
[2021-03-13] MEDS: Furosemide 40 MG/4 ML VIAL SLOW IVP SCH ×2 (05:00→14:31)
[2021-03-13 06:56] LABS: Base Excess (BEa) 8.9 mEq/L (-2.0 to +3.0); CO2 Tension 48.6 mmHg (35.0-45.0); Calcium, Ionized (arterial) 1.04 mmol/L (1.12-1.30); Carboxyhemoglobin (COHb) 1.1 gm% (0.0-3.0); Hemoglobin (Hb) 13.6 g/dL (12.0-16.0); Potassium - ABG Lab 3.67 mmol/L (3.70-5.30); pH, Arterial 7.46 (7.35-7.45)
[2021-03-13 07:30] LABS: O2 Tension (PaO2), arterial 51.8 mmHg (> 80.0); Puncture Site LRA
[2021-03-13] MEDS: Ascorbic Acid 500 mg Chewable Tablet PO SCH ×2 (09:35→21:38)
[2021-03-13] MEDS: Zinc Sulfate 220 MG CAP PO SCH (09:35)
[2021-03-13] MEDS: Aspirin Chewable 81 MG TAB PO SCH (09:35)
[2021-03-13] MEDS: Famotidine 20 MG TAB PO SCH ×2 (09:35→21:39)
[2021-03-13] MEDS: Potassium Chloride 20 MEQ TAB PO SCH (09:35)
[2021-03-13] MEDS: Ivermectin 3 MG TAB PO SCH (09:36)
[2021-03-13] MEDS: Enoxaparin Sodium 100 MG/ML SYRINGE SC SCH ×2 (09:37→21:38)
[2021-03-13] MEDS: SODIUM CHLORIDE 0.9% IVPB SCH ×2 (09:38→22:48)
[2021-03-13] MEDS: methylPREDNISolone Sod Succ/PF 125 MG/2 ML VIAL IVP SCH ×2 (09:38→21:38)
[2021-03-13] MEDS: ASCORBIC ACID IVPB SCH ×2 (09:38→22:48)
[2021-03-13] MEDS: Colchicine 0.6 MG TAB PO SCH ×2 (09:40→21:44)
[2021-03-13 15:39] LABS: ALT (SGPT) 161 U/L (8-55); AST (SGOT) 67 U/L (5-34); Alkaline Phosphatase 91 U/L (40-110); Anion Gap 16 mmol/L (10-20); BUN (Urea Nitrogen) 35 mg/dL (9.8-20.1); Bilirubin, Total 0.7 mg/dL (0.2-1.2); Calc. Creatinine Clearance 0 mL/min (70-130); Calcium 8.1 mg/dL (7.8-10.44); Carbon Dioxide 30 mmol/L (23-31); Chloride 95 mmol/L (98-107); Glucose 206 mg/dL (80-115); Potassium 4.1 mmol/L (3.5-5.1); Sodium 137 mmol/L (136-145)
[2021-03-13] MEDS: Fentanyl CADD 100 ML IV SCH (15:51)
[2021-03-13] MEDS: Melatonin 3 MG TAB PO SCH (21:39)
[2021-03-13] MEDS: Cholecalciferol 1,000 UNITS (25 MCG) TAB PO SCH (21:40)
[2021-03-14] MEDS: Lorazepam 2 MG/ML VIAL SLOW IVP PRN ×4 (00:48→13:38)
[2021-03-14] MEDS: Vecuronium 10 MG VIAL IV PRN ×3 (00:48→11:07)
[2021-03-14] MEDS: Polyethylene Glycol OPTH DROP 15 ML BOT EA EYE SCH ×6 (01:07→20:41)
[2021-03-14] MEDS: Propofol 1,000 MG/100 ML VIAL IV PRN ×3 (02:06→21:49)
[2021-03-14 03:57] LABS: Hemoglobin 12.3 g/dL (12.0-16.0); Mean Corpuscular HGB CONC 32.8 g/dL (32.0-36.0); Mean Corpuscular Hemoglobin 32.5 pg (27.0-31.0); Platelet Count 290 thou/uL (130-400); RBC Distribution Width 13.2 % (11.5-14.5); Red Blood Cell (RBC) Count 3.77 mill/uL (4.20-5.40); White Blood Cell (WBC) Count 16.5 thou/uL (4.8-10.8)
[2021-03-14 04:06] LABS: ALT (SGPT) 187 U/L (8-55); AST (SGOT) 56 U/L (5-34); Albumin 2.9 g/dL (3.4-4.8); Alkaline Phosphatase 89 U/L (40-110); Anion Gap 16 mmol/L (10-20); BUN (Urea Nitrogen) 35 mg/dL (9.8-20.1); Bilirubin, Total 0.7 mg/dL (0.2-1.2); Calc. Creatinine Clearance 129 mL/min (70-130); Calcium 7.9 mg/dL (7.8-10.44); Carbon Dioxide 29 mmol/L (23-31); Chloride 95 mmol/L (98-107); Globulin 3.1 g/dL (2.4-3.5); Glucose 222 mg/dL (80-115); Potassium 3.5 mmol/L (3.5-5.1); Sodium 136 mmol/L (136-145)
[2021-03-14 04:21] LABS: Band 1 % (5-11); Lymphocytes 2 % (21-51); MDiff Complete? YES; Neutrophil 97 % (42-75); Platelet Morphology Comment Appears Adequate
[2021-03-14] MEDS: Furosemide 40 MG/4 ML VIAL SLOW IVP SCH ×2 (05:51→13:29)
[2021-03-14] MEDS: Enoxaparin Sodium 100 MG/ML SYRINGE SC SCH (08:03)
[2021-03-14] MEDS ORDERED: MEROPENEM 1 GM/50 ML 1 GM in Premix Bag 1 BAG IVPB SCH (08:30)
[2021-03-14] MEDS: Famotidine 20 MG TAB PO SCH (10:28)
[2021-03-14] MEDS: Aspirin Chewable 81 MG TAB PO SCH (10:28)
[2021-03-14] MEDS: Ascorbic Acid 500 mg Chewable Tablet PO SCH ×2 (10:28→20:40)
[2021-03-14] MEDS: Zinc Sulfate 220 MG CAP PO SCH (10:29)
[2021-03-14] MEDS: Colchicine 0.6 MG TAB PO SCH (10:29)
[2021-03-14] MEDS: methylPREDNISolone Sod Succ/PF 125 MG/2 ML VIAL IVP SCH ×2 (10:30→20:41)
[2021-03-14] MEDS: Potassium Chloride 20 MEQ TAB PO SCH (10:48)
[2021-03-14] MEDS ORDERED: Fentanyl CADD 100 ML ONE (12:18)
[2021-03-14] MEDS: Fentanyl CADD 100 ML IV SCH (12:27)
[2021-03-14] MEDS ORDERED: VANCOMYCIN IVPB PRN (12:29)
[2021-03-14] MEDS ORDERED: Vancomycin 1.5 GRAM/300 ML BAG 1.5 GM in Premix Bag 1 BAG IVPB SCH (13:00)
[2021-03-14] MEDS ORDERED: Meropenem 1 GM in Sodium Chloride 0.9% 100 ML IVPB SCH (14:00)
[2021-03-14] MEDS ORDERED: Phenylephrine 0.25% Nasal Spray 15 ML BOT FS PRN (16:03)
[2021-03-14] MEDS ORDERED: Phenylephrine 0.25% Nasal Spray 15 ML BOT ONE (16:09)
[2021-03-14 16:24] LABS: Platelet Count 285 thou/uL (130-400)
[2021-03-14 16:34] LABS: Fibrinogen 576 mg/dL (253-463); INR-International Normal Ratio 1.1; PTT 26.1 sec (22.9-36.1); Prothrombin Time 13.8 sec (12.0-14.7)
[2021-03-14 16:37] LABS: D-Dimer Test 1.16 *mcg/mL (0.27-0.43)
[2021-03-14 16:57] LABS: FSP-Qualitative ABNORMAL (Normal); FSP-Semiquantitative >=5 & <20 mcg/mL (Less than 5)
[2021-03-14] MEDS: Pantoprazole 40 MG VIAL IVP SCH (17:11)
[2021-03-14] MEDS: MEROPENEM 1 GM/50 ML 1 GM in Premix Bag 1 BAG IVPB SCH (17:11)
[2021-03-14] MEDS: Cholecalciferol 1,000 UNITS (25 MCG) TAB PO SCH (20:41)
[2021-03-15] MEDS: Propofol 1,000 MG/100 ML VIAL IV PRN ×6 (01:58→19:18)
[2021-03-15] MEDS: MEROPENEM 1 GM/50 ML 1 GM in Premix Bag 1 BAG IVPB SCH ×3 (01:59→16:19)
[2021-03-15] MEDS: Polyethylene Glycol OPTH DROP 15 ML BOT EA EYE SCH ×6 (01:59→20:53)
[2021-03-15 04:25] LABS: ALT (SGPT) 192 U/L (8-55); AST (SGOT) 43 U/L (5-34); Albumin 2.9 g/dL (3.4-4.8); Alkaline Phosphatase 90 U/L (40-110); Anion Gap 14 mmol/L (10-20); BUN (Urea Nitrogen) 43 mg/dL (9.8-20.1); Bilirubin, Total 0.8 mg/dL (0.2-1.2); Calc. Creatinine Clearance 119 mL/min (70-130); Calcium 8.2 mg/dL (7.8-10.44); Carbon Dioxide 32 mmol/L (23-31); Chloride 93 mmol/L (98-107); Globulin 3.3 g/dL (2.4-3.5); Glucose 220 mg/dL (80-115); Phosphorus 3.7 mg/dL (2.3-4.7); Potassium 3.5 mmol/L (3.5-5.1); Protein, Total 6.2 g/dL (5.8-8.1); Sodium 135 mmol/L (136-145)
[2021-03-15] MEDS: Pantoprazole 40 MG VIAL IVP SCH ×2 (05:07→16:19)
[2021-03-15] MEDS: Furosemide 40 MG/4 ML VIAL SLOW IVP SCH ×2 (05:07→13:25)
[2021-03-15] MEDS: Lorazepam 2 MG/ML VIAL SLOW IVP PRN ×4 (05:15→21:27)
[2021-03-15] MEDS ORDERED: Fentanyl CADD 100 ML ONE (05:44)
[2021-03-15] MEDS: Fentanyl CADD 100 ML IV SCH (05:49)
[2021-03-15] MEDS: Ivermectin 3 MG TAB PO SCH (07:24)
[2021-03-15] MEDS: SODIUM CHLORIDE 0.9% IVPB SCH (07:24)
[2021-03-15] MEDS: ASCORBIC ACID IVPB SCH (07:24)
[2021-03-15] MEDS: Vecuronium 10 MG VIAL IV PRN ×3 (07:32→21:27)
[2021-03-15] MEDS: Zinc Sulfate 220 MG CAP PO SCH (08:23)
[2021-03-15] MEDS: Aspirin Chewable 81 MG TAB PO SCH (08:23)
[2021-03-15] MEDS: Ascorbic Acid 500 mg Chewable Tablet PO SCH ×2 (08:23→20:52)
[2021-03-15] MEDS: methylPREDNISolone Sod Succ/PF 125 MG/2 ML VIAL IVP SCH ×2 (08:24→20:52)
[2021-03-15] MEDS: Colchicine 0.6 MG TAB PO SCH (08:24)
[2021-03-15] MEDS: Cholecalciferol 1,000 UNITS (25 MCG) TAB PO SCH (20:52)
[2021-03-16] MEDS: MEROPENEM 1 GM/50 ML 1 GM in Premix Bag 1 BAG IVPB SCH ×3 (00:29→16:09)
[2021-03-16] MEDS: Polyethylene Glycol OPTH DROP 15 ML BOT EA EYE SCH ×6 (00:30→19:33)
[2021-03-16] MEDS: Propofol 1,000 MG/100 ML VIAL IV PRN ×6 (00:30→20:39)
[2021-03-16] MEDS ORDERED: Fentanyl CADD 100 ML ONE ×2 (00:40→19:14)
[2021-03-16 00:42] LABS: Vancomycin, Trough 2.5 ug/mL
[2021-03-16] MEDS: Lorazepam 2 MG/ML VIAL SLOW IVP PRN (01:47)
[2021-03-16] MEDS: Vecuronium 10 MG VIAL IV PRN (01:47)
[2021-03-16 04:25] LABS: Phosphorus 3.3 mg/dL (2.3-4.7)
[2021-03-16] MEDS: Furosemide 40 MG/4 ML VIAL SLOW IVP SCH ×2 (05:06→13:22)
[2021-03-16] MEDS: Pantoprazole 40 MG VIAL IVP SCH ×2 (05:06→16:09)
[2021-03-16] MEDS ORDERED: Propofol BOLUS 1,000 MG/100 ML VIAL IV PRN (07:00)
[2021-03-16] MEDS ORDERED: Fentanyl BOLUS 250 ML IVPB PRN (07:00)
[2021-03-16] MEDS: Ascorbic Acid 500 mg Chewable Tablet PO SCH ×2 (08:01→19:32)
[2021-03-16] MEDS: Aspirin Chewable 81 MG TAB PO SCH (08:01)
[2021-03-16] MEDS: Colchicine 0.6 MG TAB PO SCH (08:01)
[2021-03-16] MEDS: Enoxaparin Sodium 80 MG/0.8 ML SYRINGE SC SCH ×2 (08:02→19:32)
[2021-03-16] MEDS: Zinc Sulfate 220 MG CAP PO SCH (08:03)
[2021-03-16] MEDS: methylPREDNISolone Sod Succ/PF 125 MG/2 ML VIAL IVP SCH ×2 (08:03→19:32)
[2021-03-16 16:29] LABS: Anion Gap 14 mmol/L (10-20); BUN (Urea Nitrogen) 50 mg/dL (9.8-20.1); Calc. Creatinine Clearance 118 mL/min (70-130); Calcium 8.3 mg/dL (7.8-10.44); Carbon Dioxide 35 mmol/L (23-31); Chloride 93 mmol/L (98-107); Glucose 290 mg/dL (80-115); Potassium 3.5 mmol/L (3.5-5.1); Sodium 138 mmol/L (136-145)
[2021-03-16 16:34] LABS: Band 8 % (5-11); Hemoglobin 11.9 g/dL (12.0-16.0); Lymphocytes 2 % (21-51); MDiff Complete? YES; Mean Corpuscular HGB CONC 34.3 g/dL (32.0-36.0); Mean Corpuscular Hemoglobin 33.7 pg (27.0-31.0); Mean Corpuscular Volume 98.3 fL (78.0-98.0); Monocytes 2 % (0-10); Neutrophil 88 % (42-75); Platelet Count 287 thou/uL (130-400); Platelet Morphology Comment Appears Adequate; RBC Distribution Width 13.3 % (11.5-14.5); RBC Morphology Normal; Red Blood Cell (RBC) Count 3.52 mill/uL (4.20-5.40); Vacuoles SLIGHT; White Blood Cell (WBC) Count 14.7 thou/uL (4.8-10.8)
[2021-03-16] MEDS: Fentanyl CADD 100 ML IV SCH (19:19)
[2021-03-16] MEDS: Cholecalciferol 1,000 UNITS (25 MCG) TAB PO SCH (19:34)
[2021-03-17] MEDS: Propofol 1,000 MG/100 ML VIAL IV PRN ×7 (00:26→23:14)
[2021-03-17] MEDS: MEROPENEM 1 GM/50 ML 1 GM in Premix Bag 1 BAG IVPB SCH ×3 (00:26→16:46)
[2021-03-17] MEDS: Polyethylene Glycol OPTH DROP 15 ML BOT EA EYE SCH ×6 (00:27→20:01)
[2021-03-17] MEDS: Lorazepam 2 MG/ML VIAL SLOW IVP PRN ×4 (01:05→22:43)
[2021-03-17] MEDS: Pantoprazole 40 MG VIAL IVP SCH ×2 (04:12→16:46)
[2021-03-17 04:20] LABS: Anion Gap 14 mmol/L (10-20); BUN (Urea Nitrogen) 49 mg/dL (9.8-20.1); Calc. Creatinine Clearance 122 mL/min (70-130); Calcium 8.5 mg/dL (7.8-10.44); Carbon Dioxide 35 mmol/L (23-31); Chloride 94 mmol/L (98-107); Glucose 255 mg/dL (80-115); Potassium 3.8 mmol/L (3.5-5.1); Sodium 139 mmol/L (136-145)
[2021-03-17 04:29] LABS: Band 1 % (5-11); Lymphocytes 1 % (21-51); MDiff Complete? YES; Mean Corpuscular HGB CONC 32.8 g/dL (32.0-36.0); Mean Corpuscular Hemoglobin 32.3 pg (27.0-31.0); Mean Corpuscular Volume 98.5 fL (78.0-98.0); Mean Platelet Volume 6.9 fL (7.4-10.4); Monocytes 13 % (0-10); Neutrophil 85 % (42-75); Platelet Count 328 thou/uL (130-400); Platelet Morphology Comment Appears Adequate; RBC Distribution Width 13.2 % (11.5-14.5); RBC Morphology Normal; White Blood Cell (WBC) Count 18.7 thou/uL (4.8-10.8)
[2021-03-17] MEDS: Ascorbic Acid 500 mg Chewable Tablet PO SCH ×2 (08:39→20:01)
[2021-03-17] MEDS: Zinc Sulfate 220 MG CAP PO SCH (08:39)
[2021-03-17] MEDS: Enoxaparin Sodium 80 MG/0.8 ML SYRINGE SC SCH ×2 (08:39→20:01)
[2021-03-17] MEDS: Aspirin Chewable 81 MG TAB PO SCH (08:39)
[2021-03-17] MEDS: Lantus 1000 UNITS/10 ML VIAL SC SCH ×2 (08:43→20:03)
[2021-03-17] MEDS: Colchicine 0.6 MG TAB PO SCH (08:43)
[2021-03-17] MEDS: Furosemide 40 MG/4 ML VIAL SLOW IVP SCH (09:40)
[2021-03-17] MEDS: methylPREDNISolone Sod Succ 40 MG VIAL IVP SCH ×2 (09:41→20:01)
[2021-03-17] MEDS ORDERED: Dextrose 5% in Water 1,000 ML IV PRN (14:52)
[2021-03-17] MEDS ORDERED: Dextrose 50% Abboject 50 ML SYRINGE SLOW IVP PRN (14:52)
[2021-03-17] MEDS ORDERED: Fentanyl CADD 100 ML ONE (15:14)
[2021-03-17] MEDS: Fentanyl CADD 100 ML IV SCH (15:19)
[2021-03-17] MEDS: HumaLOG 300 UNITS/3 ML VIAL SC PRN ×2 (16:09→23:32)
[2021-03-17] MEDS: Cholecalciferol 1,000 UNITS (25 MCG) TAB PO SCH (20:01)
[2021-03-18] MEDS: MEROPENEM 1 GM/50 ML 1 GM in Premix Bag 1 BAG IVPB SCH ×4 (00:07→23:33)
[2021-03-18] MEDS: Polyethylene Glycol OPTH DROP 15 ML BOT EA EYE SCH ×6 (00:07→20:37)
[2021-03-18] MEDS: Propofol 1,000 MG/100 ML VIAL IV PRN ×6 (02:53→23:33)
[2021-03-18] MEDS: Lorazepam 2 MG/ML VIAL SLOW IVP PRN ×2 (03:14→11:15)
[2021-03-18 03:55] LABS: #Lymphocytes 0.3 thou/uL (1.20-3.40); #Monocytes 0.6 thou/uL (0.11-0.59); %Basophils 0.4 % (0.0-1.0); %Eosinophils 0.4 % (0.0-10.0); %Lymphocytes 2.2 % (21.0-51.0); %Monocytes 4.8 % (0.0-10.0); %Neutrophils 92.3 % (42.0-75.0); Hemoglobin 11.6 g/dL (12.0-16.0); Mean Corpuscular HGB CONC 32.4 g/dL (32.0-36.0); Mean Corpuscular Hemoglobin 32.3 pg (27.0-31.0); Mean Corpuscular Volume 99.6 fL (78.0-98.0); Mean Platelet Volume 8.3 fL (7.4-10.4); Platelet Count 253 thou/uL (130-400); RBC Distribution Width 13.1 % (11.5-14.5)
[2021-03-18 04:14] LABS: Anion Gap 18 mmol/L (10-20); BUN (Urea Nitrogen) 48 mg/dL (9.8-20.1); Calc. Creatinine Clearance 128 mL/min (70-130); Calcium 8.4 mg/dL (7.8-10.44); Carbon Dioxide 32 mmol/L (23-31); Chloride 93 mmol/L (98-107); Glucose 235 mg/dL (80-115); Potassium 3.6 mmol/L (3.5-5.1); Sodium 139 mmol/L (136-145)
[2021-03-18] MEDS: Pantoprazole 40 MG VIAL IVP SCH ×2 (05:10→17:03)
[2021-03-18] MEDS: HumaLOG 300 UNITS/3 ML VIAL SC PRN ×4 (05:27→23:33)
[2021-03-18] MEDS: Furosemide 40 MG/4 ML VIAL SLOW IVP SCH (08:36)
[2021-03-18] MEDS: Aspirin Chewable 81 MG TAB PO SCH (08:36)
[2021-03-18] MEDS: methylPREDNISolone Sod Succ 40 MG VIAL IVP SCH ×2 (08:36→20:35)
[2021-03-18] MEDS: Ascorbic Acid 500 mg Chewable Tablet PO SCH ×2 (08:37→20:35)
[2021-03-18] MEDS: Colchicine 0.6 MG TAB PO SCH (08:37)
[2021-03-18] MEDS: Enoxaparin Sodium 80 MG/0.8 ML SYRINGE SC SCH ×2 (08:37→20:34)
[2021-03-18] MEDS: Zinc Sulfate 220 MG CAP PO SCH (08:38)
[2021-03-18] MEDS: Lantus 1000 UNITS/10 ML VIAL SC SCH ×2 (08:48→20:35)
[2021-03-18] MEDS: Vecuronium 10 MG VIAL IV PRN (11:16)
[2021-03-18] MEDS ORDERED: Sterile Water 10 ML ONE ×2 (11:18→11:19)
[2021-03-18] MEDS: Fentanyl CADD 100 ML IV SCH (11:18)
[2021-03-18] MEDS: Cholecalciferol 1,000 UNITS (25 MCG) TAB PO SCH (20:35)
[2021-03-19] MEDS: Polyethylene Glycol OPTH DROP 15 ML BOT EA EYE SCH ×6 (00:11→20:07)
[2021-03-19] MEDS: Lorazepam 2 MG/ML VIAL SLOW IVP PRN ×4 (03:26→22:16)
[2021-03-19] MEDS: Propofol 1,000 MG/100 ML VIAL IV PRN ×4 (03:26→20:02)
[2021-03-19 04:02] LABS: BUN (Urea Nitrogen) 46 mg/dL (9.8-20.1); Calc. Creatinine Clearance 141 mL/min (70-130); Calcium 8.6 mg/dL (7.8-10.44); Glucose 211 mg/dL (80-115)
[2021-03-19 04:12] LABS: Anion Gap 17 mmol/L (10-20); Carbon Dioxide 34 mmol/L (23-31); Chloride 92 mmol/L (98-107); Potassium 3.5 mmol/L (3.5-5.1); Sodium 139 mmol/L (136-145)
[2021-03-19] MEDS ORDERED: Fentanyl CADD 100 ML ONE ×2 (04:36→23:02)
[2021-03-19] MEDS: Fentanyl CADD 100 ML IV SCH (05:03)
[2021-03-19] MEDS: Pantoprazole 40 MG VIAL IVP SCH ×2 (05:04→16:33)
[2021-03-19] MEDS: HumaLOG 300 UNITS/3 ML VIAL SC PRN ×3 (05:04→18:55)
[2021-03-19 05:13] LABS: Band 7 % (5-11); Hemoglobin 11.3 g/dL (12.0-16.0); Lymphocytes 2 % (21-51); MDiff Complete? YES; Mean Corpuscular HGB CONC 31.9 g/dL (32.0-36.0); Mean Corpuscular Hemoglobin 31.4 pg (27.0-31.0); Mean Corpuscular Volume 98.4 fL (78.0-98.0); Mean Platelet Volume 7.1 fL (7.4-10.4); Monocytes 4 % (0-10); Neutrophil 87 % (42-75); Platelet Count 325 thou/uL (130-400); Red Blood Cell (RBC) Count 3.61 mill/uL (4.20-5.40); White Blood Cell (WBC) Count 10.4 thou/uL (4.8-10.8)
[2021-03-19] MEDS: MEROPENEM 1 GM/50 ML 1 GM in Premix Bag 1 BAG IVPB SCH ×2 (08:36→16:29)
[2021-03-19] MEDS: Lantus 1000 UNITS/10 ML VIAL SC SCH ×2 (08:42→20:04)
[2021-03-19] MEDS: Furosemide 40 MG/4 ML VIAL SLOW IVP SCH (08:57)
[2021-03-19] MEDS: Enoxaparin Sodium 80 MG/0.8 ML SYRINGE SC SCH ×2 (09:00→20:02)
[2021-03-19] MEDS: methylPREDNISolone Sod Succ 40 MG VIAL IVP SCH ×2 (09:03→20:03)
[2021-03-19] MEDS: Aspirin Chewable 81 MG TAB PO SCH (09:04)
[2021-03-19] MEDS: Colchicine 0.6 MG TAB PO SCH (09:04)
[2021-03-19] MEDS: Ascorbic Acid 500 mg Chewable Tablet PO SCH ×2 (09:04→20:02)
[2021-03-19] MEDS: Zinc Sulfate 220 MG CAP PO SCH (09:04)
[2021-03-19] MEDS: Morphine 2 MG/ML VIAL SLOW IVP PRN ×3 (11:56→22:16)
[2021-03-19] MEDS: Cholecalciferol 1,000 UNITS (25 MCG) TAB PO SCH (20:02)
[2021-03-20] MEDS: HumaLOG 300 UNITS/3 ML VIAL SC PRN ×3 (00:24→23:54)
[2021-03-20] MEDS: Propofol 1,000 MG/100 ML VIAL IV PRN ×3 (01:47→14:41)
[2021-03-20] MEDS: MEROPENEM 1 GM/50 ML 1 GM in Premix Bag 1 BAG IVPB SCH ×3 (01:50→16:53)
[2021-03-20] MEDS: Polyethylene Glycol OPTH DROP 15 ML BOT EA EYE SCH ×6 (01:51→20:44)
[2021-03-20 04:07] LABS: ALT (SGPT) 95 U/L (8-55); AST (SGOT) 24 U/L (5-34); Albumin 2.7 g/dL (3.4-4.8); Alkaline Phosphatase 81 U/L (40-110); Anion Gap 15 mmol/L (10-20); BUN (Urea Nitrogen) 48 mg/dL (9.8-20.1); Bilirubin, Total 0.7 mg/dL (0.2-1.2); Calc. Creatinine Clearance 150 mL/min (70-130); Calcium 8.3 mg/dL (7.8-10.44); Carbon Dioxide 35 mmol/L (23-31); Chloride 93 mmol/L (98-107); Globulin 3.6 g/dL (2.4-3.5); Glucose 138 mg/dL (80-115); Potassium 3.5 mmol/L (3.5-5.1); Protein, Total 6.3 g/dL (5.8-8.1); Sodium 139 mmol/L (136-145)
[2021-03-20 04:26] LABS: Band 8 % (5-11); Eosinophils 1 % (0-10); Hemoglobin 11.9 g/dL (12.0-16.0); Hemoglobin A1c 6.6 % (4.0-6.0); Lymphocytes 1 % (21-51); MDiff Complete? YES; Mean Corpuscular HGB CONC 32.8 g/dL (32.0-36.0); Mean Corpuscular Hemoglobin 32.3 pg (27.0-31.0); Mean Corpuscular Volume 98.3 fL (78.0-98.0); Mean Platelet Volume 8.2 fL (7.4-10.4); Metamyelocyte 2 % (0-0); Monocytes 1 % (0-10); Myelocyte 3 % (0-0); Neutrophil 84 % (42-75); Platelet Count 273 thou/uL (130-400); RBC Distribution Width 13.2 % (11.5-14.5); Red Blood Cell (RBC) Count 3.68 mill/uL (4.20-5.40); Toxic Granulation SLIGHT
[2021-03-20] MEDS: Morphine 2 MG/ML VIAL SLOW IVP PRN ×3 (04:51→21:55)
[2021-03-20] MEDS: Lorazepam 2 MG/ML VIAL SLOW IVP PRN ×3 (04:51→21:14)
[2021-03-20] MEDS: Pantoprazole 40 MG VIAL IVP SCH ×2 (04:53→16:53)
[2021-03-20] MEDS: Ascorbic Acid 500 mg Chewable Tablet PO SCH ×2 (08:00→20:16)
[2021-03-20] MEDS: Colchicine 0.6 MG TAB PO SCH (08:00)
[2021-03-20] MEDS: Aspirin Chewable 81 MG TAB PO SCH (08:00)
[2021-03-20] MEDS: Zinc Sulfate 220 MG CAP PO SCH (08:01)
[2021-03-20] MEDS: Furosemide 40 MG/4 ML VIAL SLOW IVP SCH (08:18)
[2021-03-20] MEDS: Enoxaparin Sodium 80 MG/0.8 ML SYRINGE SC SCH ×2 (08:24→20:15)
[2021-03-20] MEDS: methylPREDNISolone Sod Succ 40 MG VIAL IVP SCH ×2 (08:25→20:16)
[2021-03-20] MEDS: Lantus 1000 UNITS/10 ML VIAL SC SCH ×2 (08:26→20:22)
[2021-03-20] MEDS ORDERED: Fentanyl CADD 100 ML ONE (17:04)
[2021-03-20] MEDS: Fentanyl CADD 100 ML IV SCH (17:07)
[2021-03-20] MEDS: Cholecalciferol 1,000 UNITS (25 MCG) TAB PO SCH (20:16)
[2021-03-21] MEDS: MEROPENEM 1 GM/50 ML 1 GM in Premix Bag 1 BAG IVPB SCH ×2 (00:29→09:06)
[2021-03-21] MEDS: Propofol 1,000 MG/100 ML VIAL IV PRN ×5 (00:29→19:45)
[2021-03-21] MEDS: Polyethylene Glycol OPTH DROP 15 ML BOT EA EYE SCH ×6 (00:30→22:41)
[2021-03-21 04:09] LABS: Anion Gap 14 mmol/L (10-20); BUN (Urea Nitrogen) 54 mg/dL (9.8-20.1); Calc. Creatinine Clearance 142 mL/min (70-130); Calcium 8.4 mg/dL (7.8-10.44); Carbon Dioxide 36 mmol/L (23-31); Chloride 92 mmol/L (98-107); Glucose 169 mg/dL (80-115); Potassium 3.4 mmol/L (3.5-5.1); Sodium 139 mmol/L (136-145)
[2021-03-21] MEDS: Pantoprazole 40 MG VIAL IVP SCH ×2 (04:25→17:31)
[2021-03-21 04:47] LABS: Band 13 % (5-11); Hemoglobin 11.2 g/dL (12.0-16.0); Lymphocytes 4 % (21-51); MDiff Complete? YES; Mean Corpuscular Hemoglobin 32.2 pg (27.0-31.0); Mean Corpuscular Volume 97.6 fL (78.0-98.0); Mean Platelet Volume 7.4 fL (7.4-10.4); Monocytes 1 % (0-10); Neutrophil 82 % (42-75); Platelet Count 353 thou/uL (130-400); Red Blood Cell (RBC) Count 3.48 mill/uL (4.20-5.40); White Blood Cell (WBC) Count 10.5 thou/uL (4.8-10.8)
[2021-03-21 06:57] LABS: Actual Bicarbonate (HCO3a) 39.9 mEq/L (22-28); Base Excess (BEa) 14.5 mEq/L (-2.0 to +3.0); CO2 Tension 52.3 mmHg (35.0-45.0); Calcium, Ionized (arterial) 1.05 mmol/L (1.12-1.30); Carboxyhemoglobin (COHb) 0.9 gm% (0.0-3.0); Hemoglobin (Hb) 12.6 g/dL (12.0-16.0); Potassium - ABG Lab 3.29 mmol/L (3.70-5.30)
[2021-03-21] MEDS ORDERED: Fentanyl CADD 100 ML ONE ×2 (06:59→18:43)
[2021-03-21 07:05] LABS: O2 Tension (PaO2), arterial 53.3 mmHg (> 80.0); Puncture Site LRA
[2021-03-21 07:06] LABS: ALV-art Gradient 487.375 mmHg (0-20)
[2021-03-21] MEDS: Fentanyl CADD 100 ML IV SCH ×2 (07:09→19:03)
[2021-03-21] MEDS: Colchicine 0.6 MG TAB PO SCH (09:07)
[2021-03-21] MEDS: Ascorbic Acid 500 mg Chewable Tablet PO SCH ×2 (09:07→20:41)
[2021-03-21] MEDS: Aspirin Chewable 81 MG TAB PO SCH (09:07)
[2021-03-21] MEDS: Enoxaparin Sodium 80 MG/0.8 ML SYRINGE SC SCH ×2 (09:07→20:41)
[2021-03-21] MEDS: methylPREDNISolone Sod Succ 40 MG VIAL IVP SCH ×2 (09:07→20:41)
[2021-03-21] MEDS: Zinc Sulfate 220 MG CAP PO SCH (09:08)
[2021-03-21] MEDS: Lantus 1000 UNITS/10 ML VIAL SC SCH ×2 (09:23→22:42)
[2021-03-21] MEDS ORDERED: Electrolyte Replacement Protocol FS PRN (10:00)
[2021-03-21] MEDS: Furosemide 40 MG/4 ML VIAL SLOW IVP SCH (10:53)
[2021-03-21] MEDS ORDERED: Potassium Bicarbonate/Cit Ac 20 MEQ TAB PER TUBE SCH (11:00)
[2021-03-21] MEDS ORDERED: Potassium Chloride 40 MEQ in Premix Bag 1 BAG IVPB SCH (12:00)
[2021-03-21 15:42] LABS: Potassium 4.2 mmol/L (3.5-5.1)
[2021-03-21] MEDS: Morphine 2 MG/ML VIAL SLOW IVP PRN (19:16)
[2021-03-21] MEDS: Cholecalciferol 1,000 UNITS (25 MCG) TAB PO SCH (20:41)
[2021-03-21] MEDS: Lorazepam 2 MG/ML VIAL SLOW IVP PRN (22:39)
[2021-03-21] MEDS: HumaLOG 300 UNITS/3 ML VIAL SC PRN (23:35)
[2021-03-22] MEDS: Propofol 1,000 MG/100 ML VIAL IV PRN ×5 (01:28→22:14)
[2021-03-22] MEDS: Polyethylene Glycol OPTH DROP 15 ML BOT EA EYE SCH ×6 (01:29→21:17)
[2021-03-22 04:50] LABS: Band 11 % (5-11); Hemoglobin 11.3 g/dL (12.0-16.0); Lymphocytes 2 % (21-51); MDiff Complete? YES; Mean Corpuscular HGB CONC 32.7 g/dL (32.0-36.0); Mean Corpuscular Hemoglobin 32.5 pg (27.0-31.0); Mean Corpuscular Volume 99.2 fL (78.0-98.0); Metamyelocyte 2 % (0-0); Monocytes 3 % (0-10); Myelocyte 1 % (0-0); Neutrophil 81 % (42-75); Platelet Count 204 thou/uL (130-400); RBC Distribution Width 13.1 % (11.5-14.5); Red Blood Cell (RBC) Count 3.46 mill/uL (4.20-5.40); White Blood Cell (WBC) Count 10.5 thou/uL (4.8-10.8)
[2021-03-22] MEDS: Pantoprazole 40 MG VIAL IVP SCH ×2 (04:59→17:32)
[2021-03-22] MEDS: Morphine 2 MG/ML VIAL SLOW IVP PRN ×2 (04:59→22:14)
[2021-03-22 07:45] LABS: BUN (Urea Nitrogen) 39 mg/dL (9.8-20.1); CRP (Inflammatory) 3.96 mg/dL (= or < 0.5); Calc. Creatinine Clearance 152 mL/min (70-130); Calcium 8.7 mg/dL (7.8-10.44); Glucose 118 mg/dL (80-115)
[2021-03-22 07:54] LABS: Anion Gap 17 mmol/L (10-20); Carbon Dioxide 34 mmol/L (23-31); Chloride 94 mmol/L (98-107); Potassium 3.7 mmol/L (3.5-5.1); Sodium 141 mmol/L (136-145)
[2021-03-22] MEDS ORDERED: Fentanyl CADD 100 ML ONE ×2 (08:03→19:38)
[2021-03-22] MEDS: methylPREDNISolone Sod Succ 40 MG VIAL IVP SCH ×2 (08:09→20:10)
[2021-03-22] MEDS: Ascorbic Acid 500 mg Chewable Tablet PO SCH ×2 (08:10→20:10)
[2021-03-22] MEDS: Enoxaparin Sodium 80 MG/0.8 ML SYRINGE SC SCH ×2 (08:10→20:10)
[2021-03-22] MEDS: Colchicine 0.6 MG TAB PO SCH (08:11)
[2021-03-22] MEDS: Fentanyl CADD 100 ML IV SCH ×2 (08:11→19:45)
[2021-03-22] MEDS: Zinc Sulfate 220 MG CAP PO SCH (08:11)
[2021-03-22] MEDS: Aspirin Chewable 81 MG TAB PO SCH (08:11)
[2021-03-22] MEDS: Lantus 1000 UNITS/10 ML VIAL SC SCH ×2 (09:34→21:16)
[2021-03-22] MEDS: Lorazepam 2 MG/ML VIAL SLOW IVP PRN ×3 (13:27→22:34)
[2021-03-22] MEDS: Cholecalciferol 1,000 UNITS (25 MCG) TAB PO SCH (20:10)
[2021-03-23] MEDS: Polyethylene Glycol OPTH DROP 15 ML BOT EA EYE SCH ×6 (00:17→21:32)
[2021-03-23] MEDS: HumaLOG 300 UNITS/3 ML VIAL SC PRN ×2 (00:17→13:04)
[2021-03-23] MEDS: Pantoprazole 40 MG VIAL IVP SCH ×2 (06:17→17:33)
[2021-03-23 06:44] LABS: Band 14 % (5-11); Hemoglobin 11.7 g/dL (12.0-16.0); Lymphocytes 5 % (21-51); MDiff Complete? YES; Mean Corpuscular HGB CONC 32.8 g/dL (32.0-36.0); Mean Corpuscular Hemoglobin 32.3 pg (27.0-31.0); Mean Corpuscular Volume 98.6 fL (78.0-98.0); Mean Platelet Volume 7.3 fL (7.4-10.4); Monocytes 4 % (0-10); Neutrophil 77 % (42-75); Platelet Clumps SLIGHT; Platelet Count 479 thou/uL (130-400); Platelet Morphology Comment PLT clumps seen-ADEQ; RBC Distribution Width 13.3 % (11.5-14.5); Red Blood Cell (RBC) Count 3.63 mill/uL (4.20-5.40); White Blood Cell (WBC) Count 13.2 thou/uL (4.8-10.8)
[2021-03-23 08:01] LABS: Chloride 96 mmol/L (98-107); Potassium 3.9 mmol/L (3.5-5.1); Sodium 141 mmol/L (136-145)
[2021-03-23 08:02] LABS: Calcium 8.4 mg/dL (7.8-10.44); Glucose 99 mg/dL (80-115)
[2021-03-23 08:16] LABS: BUN (Urea Nitrogen) 38 mg/dL (9.8-20.1); Calc. Creatinine Clearance 150 mL/min (70-130)
[2021-03-23 09:06] LABS: Anion Gap 13 mmol/L (10-20); Carbon Dioxide 37 mmol/L (23-31)
[2021-03-23] MEDS: methylPREDNISolone Sod Succ 40 MG VIAL IVP SCH ×2 (09:09→21:19)
[2021-03-23] MEDS: Enoxaparin Sodium 80 MG/0.8 ML SYRINGE SC SCH ×2 (09:09→21:18)
[2021-03-23] MEDS: Aspirin Chewable 81 MG TAB PO SCH (09:10)
[2021-03-23] MEDS: Zinc Sulfate 220 MG CAP PO SCH (09:10)
[2021-03-23] MEDS: Ascorbic Acid 500 mg Chewable Tablet PO SCH ×2 (09:10→21:18)
[2021-03-23] MEDS: Lantus 1000 UNITS/10 ML VIAL SC SCH ×2 (09:13→21:15)
[2021-03-23] MEDS ORDERED: Fentanyl CADD 100 ML ONE (09:40)
[2021-03-23] MEDS: Colchicine 0.6 MG TAB PO SCH (12:58)
[2021-03-23] MEDS: Metoprolol Tartrate 5 MG/5 ML VIAL IVP PRN (13:16)
[2021-03-23] MEDS: Propofol 1,000 MG/100 ML VIAL IV PRN ×3 (13:22→22:56)
[2021-03-23] MEDS: Lorazepam 2 MG/ML VIAL SLOW IVP PRN ×2 (19:52→23:35)
[2021-03-23 20:20] LABS: Troponin I 0.016 ng/mL (< 0.028)
[2021-03-23 20:43] LABS: Anion Gap 13 mmol/L (10-20); BUN (Urea Nitrogen) 38 mg/dL (9.8-20.1); Calc. Creatinine Clearance 153 mL/min (70-130); Calcium 8.4 mg/dL (7.8-10.44); Carbon Dioxide 33 mmol/L (23-31); Chloride 97 mmol/L (98-107); Glucose 110 mg/dL (80-115); Potassium 3.8 mmol/L (3.5-5.1); Sodium 139 mmol/L (136-145)
[2021-03-23] MEDS ORDERED: Magnesium 2 GM/50 ML 2 GM in Premix Bag 1 BAG IVPB SCH ×2 (21:00→21:30)
[2021-03-23] MEDS: Cholecalciferol 1,000 UNITS (25 MCG) TAB PO SCH (21:18)
[2021-03-23] MEDS: Morphine 2 MG/ML VIAL SLOW IVP PRN (23:46)
[2021-03-24] MEDS: Vecuronium 10 MG VIAL IV PRN (00:23)
[2021-03-24] MEDS ORDERED: Fentanyl CADD 100 ML ONE ×2 (00:34→12:37)
[2021-03-24] MEDS: Fentanyl CADD 100 ML IV SCH ×2 (00:35→12:44)
[2021-03-24] MEDS: Lorazepam 2 MG/ML VIAL SLOW IVP PRN ×7 (00:54→23:29)
[2021-03-24] MEDS: Metoprolol Tartrate 5 MG/5 ML VIAL IVP PRN (01:05)
[2021-03-24] MEDS: Polyethylene Glycol OPTH DROP 15 ML BOT EA EYE SCH ×6 (01:56→21:06)
[2021-03-24 02:43] LABS: Band 8 % (5-11); Hemoglobin 11.8 g/dL (12.0-16.0); Lymphocytes 3 % (21-51); MDiff Complete? YES; Mean Corpuscular HGB CONC 32.1 g/dL (32.0-36.0); Mean Corpuscular Volume 99.8 fL (78.0-98.0); Mean Platelet Volume 7.3 fL (7.4-10.4); Metamyelocyte 1 % (0-0); Monocytes 4 % (0-10); Neutrophil 84 % (42-75); Platelet Count 536 thou/uL (130-400); RBC Distribution Width 13.4 % (11.5-14.5); White Blood Cell (WBC) Count 17.2 thou/uL (4.8-10.8)
[2021-03-24] MEDS: Propofol 1,000 MG/100 ML VIAL IV PRN ×5 (02:49→21:01)
[2021-03-24 03:11] LABS: Troponin I 0.012 ng/mL (< 0.028)
[2021-03-24 03:26] LABS: Anion Gap 16 mmol/L (10-20); BUN (Urea Nitrogen) 38 mg/dL (9.8-20.1); Calc. Creatinine Clearance 138 mL/min (70-130); Calcium 8.3 mg/dL (7.8-10.44); Carbon Dioxide 30 mmol/L (23-31); Chloride 97 mmol/L (98-107); Glucose 203 mg/dL (80-115); Magnesium 2.6 mg/dL (1.6-2.6); Sodium 139 mmol/L (136-145)
[2021-03-24] MEDS: Pantoprazole 40 MG VIAL IVP SCH ×2 (05:36→17:03)
[2021-03-24] MEDS: Enoxaparin Sodium 80 MG/0.8 ML SYRINGE SC SCH ×2 (08:35→21:01)
[2021-03-24] MEDS: Aspirin Chewable 81 MG TAB PO SCH (08:35)
[2021-03-24] MEDS: Ascorbic Acid 500 mg Chewable Tablet PO SCH ×2 (08:35→21:00)
[2021-03-24] MEDS: Zinc Sulfate 220 MG CAP PO SCH (08:35)
[2021-03-24] MEDS: Lantus 1000 UNITS/10 ML VIAL SC SCH ×2 (08:36→21:18)
[2021-03-24] MEDS: methylPREDNISolone Sod Succ 40 MG VIAL IVP SCH ×2 (08:38→21:00)
[2021-03-24] MEDS: Colchicine 0.6 MG TAB PO SCH (08:47)
[2021-03-24] MEDS ORDERED: Polyethylene Glycol 3350 17 GM Packet PO PRN (20:08)
[2021-03-24] MEDS ORDERED: Furosemide 20 MG/2 ML VIAL SLOW IVP SCH (20:15)
[2021-03-24] MEDS: Cholecalciferol 1,000 UNITS (25 MCG) TAB PO SCH (21:01)
[2021-03-24] MEDS: Vancomycin 1 GM in Premix Bag 1 BAG IVPB SCH (21:15)
[2021-03-24] MEDS: Morphine 2 MG/ML VIAL SLOW IVP PRN (23:29)
[2021-03-25] MEDS ORDERED: Fentanyl CADD 100 ML ONE ×2 (01:09→23:36)
[2021-03-25] MEDS: Fentanyl CADD 100 ML IV SCH ×3 (01:12→23:39)
[2021-03-25] MEDS: Propofol 1,000 MG/100 ML VIAL IV PRN ×7 (01:12→22:15)
[2021-03-25] MEDS: Polyethylene Glycol OPTH DROP 15 ML BOT EA EYE SCH ×6 (01:13→20:58)
[2021-03-25 04:11] LABS: Band 18 % (5-11); Hemoglobin 10.5 g/dL (12.0-16.0); Lymphocytes 4 % (21-51); MDiff Complete? YES; Mean Corpuscular HGB CONC 32.3 g/dL (32.0-36.0); Mean Corpuscular Hemoglobin 32.2 pg (27.0-31.0); Mean Corpuscular Volume 99.6 fL (78.0-98.0); Mean Platelet Volume 7.7 fL (7.4-10.4); Metamyelocyte 3 % (0-0); Monocytes 3 % (0-10); Neutrophil 72 % (42-75); Platelet Count 436 thou/uL (130-400); Platelet Morphology Comment Appears Increased; RBC Distribution Width 13.4 % (11.5-14.5); Red Blood Cell (RBC) Count 3.28 mill/uL (4.20-5.40); White Blood Cell (WBC) Count 13.3 thou/uL (4.8-10.8)
[2021-03-25 04:22] LABS: Anion Gap 14 mmol/L (10-20); BUN (Urea Nitrogen) 27 mg/dL (9.8-20.1); Calc. Creatinine Clearance 159 mL/min (70-130); Calcium 8.2 mg/dL (7.8-10.44); Carbon Dioxide 33 mmol/L (23-31); Chloride 96 mmol/L (98-107); Glucose 129 mg/dL (80-115); Potassium 3.5 mmol/L (3.5-5.1); Sodium 139 mmol/L (136-145)
[2021-03-25] MEDS: Pantoprazole 40 MG VIAL IVP SCH ×2 (04:32→17:14)
[2021-03-25] MEDS ORDERED: Potassium Chloride 40 MEQ in Sodium Chloride 0.9% 250 ML 250 ML IVPB SCH (05:00)
[2021-03-25] MEDS: Vancomycin 1 GM in Premix Bag 1 BAG IVPB SCH ×2 (08:29→20:28)
[2021-03-25] MEDS: Lantus 1000 UNITS/10 ML VIAL SC SCH ×2 (08:30→20:26)
[2021-03-25] MEDS: methylPREDNISolone Sod Succ 40 MG VIAL IVP SCH ×2 (08:30→20:27)
[2021-03-25] MEDS: Enoxaparin Sodium 80 MG/0.8 ML SYRINGE SC SCH ×2 (08:31→20:24)
[2021-03-25] MEDS: Zinc Sulfate 220 MG CAP PO SCH (08:31)
[2021-03-25] MEDS: Colchicine 0.6 MG TAB PO SCH (08:31)
[2021-03-25] MEDS: Aspirin Chewable 81 MG TAB PO SCH (08:31)
[2021-03-25] MEDS: Ascorbic Acid 500 mg Chewable Tablet PO SCH ×2 (08:31→20:24)
[2021-03-25] MEDS ORDERED: Sterile Water 10 ML ONE ×3 (10:03→12:51)
[2021-03-25] MEDS: Vecuronium 10 MG VIAL IV PRN ×3 (10:07→12:53)
[2021-03-25] MEDS: Lorazepam 2 MG/ML VIAL SLOW IVP PRN ×2 (10:16→11:01)
[2021-03-25] MEDS: hydrALAZINE 20 MG/ML VIAL SLOW IVP PRN (10:38)
[2021-03-25] MEDS: Morphine 2 MG/ML VIAL SLOW IVP PRN (10:57)
[2021-03-25] MEDS: Metoprolol Tartrate 5 MG/5 ML VIAL IVP PRN (10:58)
[2021-03-25] MEDS: niCARdipine 25 MG in Sodium Chloride 0.9% 250 ML 240 ML IVPB SCH ×2 (11:40→13:33)
[2021-03-25] MEDS: HumaLOG 300 UNITS/3 ML VIAL SC PRN (17:23)
[2021-03-25] MEDS: Cholecalciferol 1,000 UNITS (25 MCG) TAB PO SCH (20:24)
[2021-03-26] MEDS: Polyethylene Glycol OPTH DROP 15 ML BOT EA EYE SCH ×6 (02:00→20:18)
[2021-03-26] MEDS: Propofol 1,000 MG/100 ML VIAL IV PRN ×6 (02:02→23:39)
[2021-03-26] MEDS: Vecuronium 10 MG VIAL IV PRN ×6 (02:05→21:35)
[2021-03-26] MEDS: HumaLOG 300 UNITS/3 ML VIAL SC PRN ×3 (04:35→21:30)
[2021-03-26] MEDS: Pantoprazole 40 MG VIAL IVP SCH ×2 (05:59→17:21)
[2021-03-26 06:21] LABS: Band 12 % (5-11); Hemoglobin 9.9 g/dL (12.0-16.0); Lymphocytes 3 % (21-51); MDiff Complete? YES; Mean Corpuscular HGB CONC 33.6 g/dL (32.0-36.0); Mean Corpuscular Hemoglobin 33.5 pg (27.0-31.0); Mean Corpuscular Volume 99.8 fL (78.0-98.0); Monocytes 3 % (0-10); Neutrophil 82 % (42-75); Platelet Count 498 thou/uL (130-400); Platelet Morphology Comment Appears Increased; RBC Distribution Width 13.6 % (11.5-14.5); Red Blood Cell (RBC) Count 2.95 mill/uL (4.20-5.40)
[2021-03-26 06:32] LABS: Anion Gap 14 mmol/L (10-20); BUN (Urea Nitrogen) 27 mg/dL (9.8-20.1); Calc. Creatinine Clearance 152 mL/min (70-130); Calcium 8.1 mg/dL (7.8-10.44); Carbon Dioxide 29 mmol/L (23-31); Chloride 99 mmol/L (98-107); Glucose 160 mg/dL (80-115); Potassium 3.9 mmol/L (3.5-5.1); Sodium 138 mmol/L (136-145)
[2021-03-26] MEDS: Vancomycin 1 GM in Premix Bag 1 BAG IVPB SCH ×2 (09:28→21:14)
[2021-03-26] MEDS: Ascorbic Acid 500 mg Chewable Tablet PO SCH ×2 (09:31→20:10)
[2021-03-26] MEDS: Aspirin Chewable 81 MG TAB PO SCH (09:31)
[2021-03-26] MEDS: Colchicine 0.6 MG TAB PO SCH (09:32)
[2021-03-26] MEDS: Lantus 1000 UNITS/10 ML VIAL SC SCH ×2 (09:32→21:30)
[2021-03-26] MEDS: Enoxaparin Sodium 80 MG/0.8 ML SYRINGE SC SCH ×2 (09:32→20:12)
[2021-03-26] MEDS: Zinc Sulfate 220 MG CAP PO SCH (09:34)
[2021-03-26] MEDS: methylPREDNISolone Sod Succ 40 MG VIAL IVP SCH ×2 (09:34→20:12)
[2021-03-26] MEDS: hydrALAZINE 20 MG/ML VIAL SLOW IVP PRN (09:38)
[2021-03-26] MEDS: Morphine 2 MG/ML VIAL SLOW IVP PRN ×5 (09:40→21:23)
[2021-03-26] MEDS: Lorazepam 2 MG/ML VIAL SLOW IVP PRN ×5 (09:41→21:23)
[2021-03-26] MEDS ORDERED: Fentanyl CADD 100 ML ONE ×2 (10:13→20:15)
[2021-03-26] MEDS: niCARdipine 50 MG in Sodium Chloride 0.9% 250 ML 230 ML IV SCH ×3 (10:20→20:54)
[2021-03-26] MEDS: niCARdipine 25 MG in Sodium Chloride 0.9% 250 ML 240 ML IVPB SCH (10:20)
[2021-03-26] MEDS: Fentanyl CADD 100 ML IV SCH ×2 (10:30→20:29)
[2021-03-26] MEDS: Cholecalciferol 1,000 UNITS (25 MCG) TAB PO SCH (20:12)
[2021-03-26] MEDS: Sterile Water 10 ML VIAL IVP PRN (21:35)
[2021-03-27] MEDS: Polyethylene Glycol OPTH DROP 15 ML BOT EA EYE SCH ×6 (00:25→22:20)
[2021-03-27] MEDS: Vecuronium 10 MG VIAL IV PRN ×5 (01:18→19:44)
[2021-03-27] MEDS: Morphine 2 MG/ML VIAL SLOW IVP PRN ×5 (01:18→19:39)
[2021-03-27] MEDS: Lorazepam 2 MG/ML VIAL SLOW IVP PRN ×5 (01:18→19:41)
[2021-03-27] MEDS: Sterile Water 10 ML VIAL IVP PRN ×3 (01:23→19:44)
[2021-03-27] MEDS: Propofol 1,000 MG/100 ML VIAL IV PRN ×5 (02:56→21:59)
[2021-03-27 04:07] LABS: Hemoglobin 9.7 g/dL (12.0-16.0); Mean Corpuscular HGB CONC 33.1 g/dL (32.0-36.0); Mean Corpuscular Volume 99.7 fL (78.0-98.0); Mean Platelet Volume 7.1 fL (7.4-10.4); Platelet Count 463 thou/uL (130-400); RBC Distribution Width 13.5 % (11.5-14.5); Red Blood Cell (RBC) Count 2.93 mill/uL (4.20-5.40); White Blood Cell (WBC) Count 12.2 thou/uL (4.8-10.8)
[2021-03-27 04:21] LABS: Anion Gap 13 mmol/L (10-20); BUN (Urea Nitrogen) 24 mg/dL (9.8-20.1); Calc. Creatinine Clearance 155 mL/min (70-130); Calcium 8.1 mg/dL (7.8-10.44); Carbon Dioxide 28 mmol/L (23-31); Chloride 101 mmol/L (98-107); Glucose 172 mg/dL (80-115); Potassium 3.9 mmol/L (3.5-5.1); Sodium 138 mmol/L (136-145)
[2021-03-27 04:32] LABS: Lymphocytes 1 % (21-51); MDiff Complete? YES; Monocytes 1 % (0-10); Neutrophil 98 % (42-75); Platelet Morphology Comment Appears Increased
[2021-03-27] MEDS: Fentanyl CADD 100 ML IV SCH ×2 (06:16→15:43)
[2021-03-27] MEDS: Pantoprazole 40 MG VIAL IVP SCH ×2 (06:25→15:44)
[2021-03-27] MEDS: Vancomycin 1 GM in Premix Bag 1 BAG IVPB SCH ×2 (07:46→21:57)
[2021-03-27] MEDS: Enoxaparin Sodium 80 MG/0.8 ML SYRINGE SC SCH ×2 (07:47→21:56)
[2021-03-27] MEDS: Ascorbic Acid 500 mg Chewable Tablet PO SCH ×2 (07:48→21:57)
[2021-03-27] MEDS: Colchicine 0.6 MG TAB PO SCH (07:48)
[2021-03-27] MEDS: methylPREDNISolone Sod Succ 40 MG VIAL IVP SCH ×2 (07:48→21:57)
[2021-03-27] MEDS: Aspirin Chewable 81 MG TAB PO SCH (07:48)
[2021-03-27] MEDS: Zinc Sulfate 220 MG CAP PO SCH (07:48)
[2021-03-27] MEDS: Lantus 1000 UNITS/10 ML VIAL SC SCH ×2 (07:49→22:09)
[2021-03-27] MEDS: HumaLOG 300 UNITS/3 ML VIAL SC PRN ×2 (07:53→11:00)
[2021-03-27] MEDS: Acetaminophen 650 MG/20.3 ML UDCUP PO PRN (08:16)
[2021-03-27] MEDS ORDERED: Fentanyl CADD 100 ML ONE (15:38)
[2021-03-27] MEDS ORDERED: Pantoprazole 40 MG VIAL ONE (15:45)
[2021-03-27] MEDS: Cholecalciferol 1,000 UNITS (25 MCG) TAB PO SCH (21:57)
[2021-03-27] MEDS: niCARdipine 50 MG in Sodium Chloride 0.9% 250 ML 230 ML IV SCH (21:58)
[2021-03-28] MEDS: Lorazepam 2 MG/ML VIAL SLOW IVP PRN ×6 (00:37→22:08)
[2021-03-28] MEDS: Morphine 2 MG/ML VIAL SLOW IVP PRN (00:37)
[2021-03-28] MEDS: Vecuronium 10 MG VIAL IV PRN ×4 (00:37→21:47)
[2021-03-28] MEDS: Sterile Water 10 ML VIAL IVP PRN ×3 (00:37→12:02)
[2021-03-28] MEDS: Propofol 1,000 MG/100 ML VIAL IV PRN ×6 (00:37→22:08)
[2021-03-28] MEDS: Polyethylene Glycol OPTH DROP 15 ML BOT EA EYE SCH ×6 (00:38→20:13)
[2021-03-28] MEDS ORDERED: Fentanyl CADD 100 ML ONE ×3 (01:52→21:40)
[2021-03-28] MEDS: Fentanyl CADD 100 ML IV SCH ×2 (01:58→21:46)
[2021-03-28 04:58] LABS: Anion Gap 19 mmol/L (10-20); BUN (Urea Nitrogen) 30 mg/dL (9.8-20.1); Calc. Creatinine Clearance 142 mL/min (70-130); Calcium 8.4 mg/dL (7.8-10.44); Carbon Dioxide 25 mmol/L (23-31); Chloride 102 mmol/L (98-107); Glucose 149 mg/dL (80-115); Potassium 5.6 mmol/L (3.5-5.1); Sodium 140 mmol/L (136-145)
[2021-03-28 05:00] LABS: Hemoglobin 11.4 g/dL (12.0-16.0); Hypochromia SLIGHT = 6-15 cells (100X) (0-5/hpf); Lymphocytes 5 % (21-51); MDiff Complete? YES; Mean Corpuscular HGB CONC 32.4 g/dL (32.0-36.0); Mean Corpuscular Hemoglobin 32.2 pg (27.0-31.0); Mean Corpuscular Volume 99.6 fL (78.0-98.0); Mean Platelet Volume 7.3 fL (7.4-10.4); Monocytes 4 % (0-10); Neutrophil 90 % (42-75); Platelet Count 593 thou/uL (130-400); Platelet Morphology Comment Appears Increased; RBC Distribution Width 13.7 % (11.5-14.5); Reactive Lymphocytes 1 % (0-10); Red Blood Cell (RBC) Count 3.53 mill/uL (4.20-5.40); White Blood Cell (WBC) Count 15.5 thou/uL (4.8-10.8)
[2021-03-28] MEDS: Pantoprazole 40 MG VIAL IVP SCH ×2 (05:10→17:52)
[2021-03-28] MEDS: Vancomycin 1 GM in Premix Bag 1 BAG IVPB SCH ×2 (10:08→21:47)
[2021-03-28] MEDS: methylPREDNISolone Sod Succ 40 MG VIAL IVP SCH ×2 (10:12→20:11)
[2021-03-28] MEDS: Enoxaparin Sodium 80 MG/0.8 ML SYRINGE SC SCH ×2 (10:12→20:11)
[2021-03-28] MEDS: Ascorbic Acid 500 mg Chewable Tablet PO SCH ×2 (10:13→20:11)
[2021-03-28] MEDS: Lantus 1000 UNITS/10 ML VIAL SC SCH ×2 (10:13→20:12)
[2021-03-28] MEDS: Zinc Sulfate 220 MG CAP PO SCH (10:13)
[2021-03-28] MEDS: Colchicine 0.6 MG TAB PO SCH (10:13)
[2021-03-28] MEDS: Aspirin Chewable 81 MG TAB PO SCH (10:13)
[2021-03-28] MEDS: Metoprolol Tartrate 5 MG/5 ML VIAL IVP PRN (12:02)
[2021-03-28] MEDS: hydrALAZINE 20 MG/ML VIAL SLOW IVP PRN (12:36)
[2021-03-28] MEDS: niCARdipine 50 MG in Sodium Chloride 0.9% 250 ML 230 ML IV SCH (13:13)
[2021-03-28 15:33] LABS: Potassium 3.7 mmol/L (3.5-5.1)
[2021-03-28] MEDS: Cholecalciferol 1,000 UNITS (25 MCG) TAB PO SCH (20:11)
[2021-03-29] MEDS: Propofol 1,000 MG/100 ML VIAL IV PRN ×7 (00:40→23:56)
[2021-03-29] MEDS: Polyethylene Glycol OPTH DROP 15 ML BOT EA EYE SCH ×6 (00:55→21:57)
[2021-03-29] MEDS: Lorazepam 2 MG/ML VIAL SLOW IVP PRN ×7 (03:37→22:40)
[2021-03-29] MEDS: Vecuronium 10 MG VIAL IV PRN ×2 (03:40→06:26)
[2021-03-29] MEDS: HumaLOG 300 UNITS/3 ML VIAL SC PRN (04:23)
[2021-03-29 05:22] LABS: Lymphocytes 7 % (21-51); MDiff Complete? YES; Mean Corpuscular HGB CONC 33.2 g/dL (32.0-36.0); Mean Corpuscular Hemoglobin 32.8 pg (27.0-31.0); Mean Corpuscular Volume 98.8 fL (78.0-98.0); Mean Platelet Volume 6.6 fL (7.4-10.4); Metamyelocyte 2 % (0-0); Monocytes 6 % (0-10); Neutrophil 85 % (42-75); Platelet Count 620 thou/uL (130-400); Platelet Morphology Comment Appears Increased; RBC Distribution Width 13.8 % (11.5-14.5); Red Blood Cell (RBC) Count 3.65 mill/uL (4.20-5.40); White Blood Cell (WBC) Count 13.2 thou/uL (4.8-10.8)
[2021-03-29] MEDS: Pantoprazole 40 MG VIAL IVP SCH ×2 (05:26→17:00)
[2021-03-29 05:30] LABS: Anion Gap 13 mmol/L (10-20); BUN (Urea Nitrogen) 25 mg/dL (9.8-20.1); Calc. Creatinine Clearance 142 mL/min (70-130); Calcium 8.4 mg/dL (7.8-10.44); Carbon Dioxide 29 mmol/L (23-31); Chloride 101 mmol/L (98-107); Glucose 166 mg/dL (80-115); Potassium 3.3 mmol/L (3.5-5.1); Sodium 140 mmol/L (136-145)
[2021-03-29] MEDS ORDERED: Fentanyl CADD 100 ML ONE ×2 (07:25→17:47)
[2021-03-29] MEDS: Fentanyl CADD 100 ML IV SCH ×2 (07:30→17:50)
[2021-03-29] MEDS: Zinc Sulfate 220 MG CAP PO SCH ×2 (08:02→08:03)
[2021-03-29] MEDS: Ascorbic Acid 500 mg Chewable Tablet PO SCH ×2 (08:02→21:58)
[2021-03-29] MEDS: Enoxaparin Sodium 80 MG/0.8 ML SYRINGE SC SCH ×2 (08:03→21:58)
[2021-03-29] MEDS: Aspirin Chewable 81 MG TAB PO SCH (08:03)
[2021-03-29] MEDS: Colchicine 0.6 MG TAB PO SCH (08:03)
[2021-03-29] MEDS: Vancomycin 1 GM in Premix Bag 1 BAG IVPB SCH ×2 (08:03→21:58)
[2021-03-29] MEDS: methylPREDNISolone Sod Succ 40 MG VIAL IVP SCH ×3 (08:04→21:58)
[2021-03-29] MEDS: Lantus 1000 UNITS/10 ML VIAL SC SCH ×2 (08:04→22:40)
[2021-03-29] MEDS ORDERED: Potassium Chloride 20 MEQ TAB PO SCH (09:00)
[2021-03-29] MEDS: Cholecalciferol 1,000 UNITS (25 MCG) TAB PO SCH (22:02)
[2021-03-30] MEDS: Lorazepam 2 MG/ML VIAL SLOW IVP PRN ×5 (00:35→22:18)
[2021-03-30] MEDS: Polyethylene Glycol OPTH DROP 15 ML BOT EA EYE SCH ×6 (00:46→21:29)
[2021-03-30] MEDS: Propofol 1,000 MG/100 ML VIAL IV PRN ×5 (03:32→20:23)
[2021-03-30 04:28] LABS: Band 7 % (5-11); Hemoglobin 11.4 g/dL (12.0-16.0); Hypochromia SLIGHT = 6-15 cells (100X) (0-5/hpf); Lymphocytes 3 % (21-51); MDiff Complete? YES; Mean Corpuscular HGB CONC 32.4 g/dL (32.0-36.0); Mean Corpuscular Hemoglobin 31.9 pg (27.0-31.0); Mean Corpuscular Volume 98.5 fL (78.0-98.0); Mean Platelet Volume 6.4 fL (7.4-10.4); Monocytes 5 % (0-10); Neutrophil 85 % (42-75); Platelet Count 527 thou/uL (130-400); Platelet Morphology Comment Appears Increased; Red Blood Cell (RBC) Count 3.57 mill/uL (4.20-5.40); White Blood Cell (WBC) Count 15.6 thou/uL (4.8-10.8)
[2021-03-30 04:32] LABS: Anion Gap 13 mmol/L (10-20); BUN (Urea Nitrogen) 22 mg/dL (9.8-20.1); Calc. Creatinine Clearance 157 mL/min (70-130); Carbon Dioxide 27 mmol/L (23-31); Chloride 105 mmol/L (98-107); Glucose 133 mg/dL (80-115); Potassium 3.5 mmol/L (3.5-5.1); Sodium 141 mmol/L (136-145)
[2021-03-30 04:57] LABS: Vancomycin, Trough 47.1 ug/mL
[2021-03-30] MEDS ORDERED: Fentanyl CADD 100 ML ONE (05:14)
[2021-03-30] MEDS: Fentanyl CADD 100 ML IV SCH ×2 (05:16→16:33)
[2021-03-30] MEDS: Pantoprazole 40 MG VIAL IVP SCH ×2 (06:10→17:32)
[2021-03-30] MEDS ORDERED: Potassium Chloride 40 MEQ in Sodium Chloride 0.9% 250 ML 250 ML IVPB SCH (06:30)
[2021-03-30] MEDS: methylPREDNISolone Sod Succ 40 MG VIAL IVP SCH ×2 (08:21→21:27)
[2021-03-30] MEDS: Aspirin Chewable 81 MG TAB PO SCH (08:22)
[2021-03-30] MEDS: Ascorbic Acid 500 mg Chewable Tablet PO SCH ×2 (08:22→21:27)
[2021-03-30] MEDS: Zinc Sulfate 220 MG CAP PO SCH (08:23)
[2021-03-30] MEDS: Enoxaparin Sodium 80 MG/0.8 ML SYRINGE SC SCH ×2 (08:32→21:27)
[2021-03-30] MEDS: Lantus 1000 UNITS/10 ML VIAL SC SCH ×2 (08:32→22:17)
[2021-03-30] MEDS: Vancomycin 1 GM in Premix Bag 1 BAG IVPB SCH (12:11)
[2021-03-30] MEDS: Sterile Water 10 ML VIAL IVP PRN (18:25)
[2021-03-30] MEDS: Vecuronium 10 MG VIAL IV PRN (18:25)
[2021-03-30] MEDS: Metoprolol Tartrate 5 MG/5 ML VIAL IVP PRN (18:51)
[2021-03-30] MEDS: Cholecalciferol 1,000 UNITS (25 MCG) TAB PO SCH (21:26)
[2021-03-31] MEDS: Propofol 1,000 MG/100 ML VIAL IV PRN ×4 (00:31→20:50)
[2021-03-31] MEDS: Vancomycin 1 GM in Premix Bag 1 BAG IVPB SCH (00:31)
[2021-03-31] MEDS: Polyethylene Glycol OPTH DROP 15 ML BOT EA EYE SCH ×6 (00:32→20:54)
[2021-03-31] MEDS: Lorazepam 2 MG/ML VIAL SLOW IVP PRN ×6 (03:23→23:49)
[2021-03-31] MEDS ORDERED: Fentanyl CADD 100 ML ONE (03:34)
[2021-03-31] MEDS: Fentanyl CADD 100 ML IV SCH ×2 (03:37→16:29)
[2021-03-31 04:39] LABS: Band 2 % (5-11); Hemoglobin 10.9 g/dL (12.0-16.0); Lymphocytes 4 % (21-51); MDiff Complete? YES; Mean Corpuscular HGB CONC 33.3 g/dL (32.0-36.0); Mean Corpuscular Hemoglobin 33.1 pg (27.0-31.0); Mean Corpuscular Volume 99.4 fL (78.0-98.0); Mean Platelet Volume 6.7 fL (7.4-10.4); Monocytes 2 % (0-10); Neutrophil 92 % (42-75); Platelet Count 417 thou/uL (130-400); Platelet Morphology Comment Appears Increased; Polychromasia SLIGHT = 2-3 cells (100X) (0-2/hpf); RBC Distribution Width 14.2 % (11.5-14.5); White Blood Cell (WBC) Count 11.2 thou/uL (4.8-10.8)
[2021-03-31 04:45] LABS: Anion Gap 10 mmol/L (10-20); BUN (Urea Nitrogen) 20 mg/dL (9.8-20.1); Calc. Creatinine Clearance 167 mL/min (70-130); Calcium 8.1 mg/dL (7.8-10.44); Carbon Dioxide 29 mmol/L (23-31); Chloride 106 mmol/L (98-107); Glucose 101 mg/dL (80-115); Potassium 3.8 mmol/L (3.5-5.1); Sodium 141 mmol/L (136-145)
[2021-03-31] MEDS: Pantoprazole 40 MG VIAL IVP SCH ×2 (05:57→17:37)
[2021-03-31] MEDS: Metoprolol Tartrate 5 MG/5 ML VIAL IVP PRN (07:55)
[2021-03-31] MEDS: methylPREDNISolone Sod Succ 40 MG VIAL IVP SCH ×2 (07:56→20:51)
[2021-03-31] MEDS: Ascorbic Acid 500 mg Chewable Tablet PO SCH ×2 (07:56→20:50)
[2021-03-31] MEDS: Enoxaparin Sodium 80 MG/0.8 ML SYRINGE SC SCH ×2 (07:56→20:50)
[2021-03-31] MEDS: Aspirin Chewable 81 MG TAB PO SCH (07:57)
[2021-03-31] MEDS: Zinc Sulfate 220 MG CAP PO SCH (07:57)
[2021-03-31] MEDS: Lantus 1000 UNITS/10 ML VIAL SC SCH (11:43)
[2021-03-31] MEDS: Cholecalciferol 1,000 UNITS (25 MCG) TAB PO SCH (20:50)
[2021-03-31] MEDS: Morphine 2 MG/ML VIAL SLOW IVP PRN ×2 (21:57→23:49)
[2021-03-31] MEDS ORDERED: Vecuronium 10 MG VIAL ONE ×3 (22:04→23:45)
[2021-04-01] MEDS: Acetaminophen 650 MG/20.3 ML UDCUP PO PRN (00:21)
[2021-04-01] MEDS: Polyethylene Glycol OPTH DROP 15 ML BOT EA EYE SCH ×6 (01:00→21:25)
[2021-04-01] MEDS: Propofol 1,000 MG/100 ML VIAL IV PRN ×5 (01:30→22:10)
[2021-04-01 04:33] LABS: Anion Gap 15 mmol/L (10-20); BUN (Urea Nitrogen) 23 mg/dL (9.8-20.1); Calc. Creatinine Clearance 157 mL/min (70-130); Calcium 8.1 mg/dL (7.8-10.44); Carbon Dioxide 21 mmol/L (23-31); Chloride 107 mmol/L (98-107); Glucose 168 mg/dL (80-115); Potassium 4.4 mmol/L (3.5-5.1); Sodium 139 mmol/L (136-145)
[2021-04-01 04:42] LABS: Hemoglobin 11.7 g/dL (12.0-16.0); Mean Corpuscular HGB CONC 33.1 g/dL (32.0-36.0); Mean Corpuscular Hemoglobin 33.3 pg (27.0-31.0); Mean Platelet Volume 7.9 fL (7.4-10.4); Platelet Count 291 thou/uL (130-400); RBC Distribution Width 14.7 % (11.5-14.5); Red Blood Cell (RBC) Count 3.52 mill/uL (4.20-5.40); White Blood Cell (WBC) Count 11.2 thou/uL (4.8-10.8)
[2021-04-01] MEDS ORDERED: Fentanyl CADD 100 ML ONE ×2 (05:12→21:48)
[2021-04-01] MEDS: Fentanyl CADD 100 ML IV SCH ×2 (05:22→21:51)
[2021-04-01] MEDS: Pantoprazole 40 MG VIAL IVP SCH ×2 (05:23→17:54)
[2021-04-01] MEDS: HumaLOG 300 UNITS/3 ML VIAL SC PRN (05:23)
[2021-04-01 05:27] LABS: Band 26 % (5-11); Lymphocytes 2 % (21-51); MDiff Complete? YES; Monocytes 1 % (0-10); Neutrophil 71 % (42-75)
[2021-04-01] MEDS ORDERED: Vecuronium 10 MG VIAL ONE ×2 (06:18→06:20)
[2021-04-01] MEDS: Lorazepam 2 MG/ML VIAL SLOW IVP PRN ×4 (06:33→22:10)
[2021-04-01] MEDS: Morphine 2 MG/ML VIAL SLOW IVP PRN ×2 (06:33→10:49)
[2021-04-01] MEDS: Vecuronium 10 MG VIAL IV PRN ×4 (06:34→22:10)
[2021-04-01] MEDS: Ascorbic Acid 500 mg Chewable Tablet PO SCH ×2 (08:34→21:22)
[2021-04-01] MEDS: Aspirin Chewable 81 MG TAB PO SCH (08:35)
[2021-04-01] MEDS: methylPREDNISolone Sod Succ 40 MG VIAL IVP SCH ×2 (08:35→21:23)
[2021-04-01] MEDS: Zinc Sulfate 220 MG CAP PO SCH (08:35)
[2021-04-01] MEDS: Enoxaparin Sodium 80 MG/0.8 ML SYRINGE SC SCH ×2 (08:35→21:22)
[2021-04-01] MEDS: Cholecalciferol 1,000 UNITS (25 MCG) TAB PO SCH (21:23)
[2021-04-02] MEDS: Polyethylene Glycol OPTH DROP 15 ML BOT EA EYE SCH ×6 (02:42→20:57)
[2021-04-02] MEDS: Propofol 1,000 MG/100 ML VIAL IV PRN ×6 (02:42→22:26)
[2021-04-02] MEDS: Vecuronium 10 MG VIAL IV PRN ×3 (02:42→21:33)
[2021-04-02 04:25] LABS: Anion Gap 11 mmol/L (10-20); BUN (Urea Nitrogen) 27 mg/dL (9.8-20.1); Calc. Creatinine Clearance 164 mL/min (70-130); Carbon Dioxide 27 mmol/L (23-31); Chloride 104 mmol/L (98-107); Glucose 179 mg/dL (80-115); Potassium 3.6 mmol/L (3.5-5.1); Sodium 138 mmol/L (136-145)
[2021-04-02 04:45] LABS: Band 33 % (5-11); Hemoglobin 9.4 g/dL (12.0-16.0); Lymphocytes 2 % (21-51); MDiff Complete? YES; Mean Corpuscular Hemoglobin 32.1 pg (27.0-31.0); Mean Platelet Volume 6.7 fL (7.4-10.4); Metamyelocyte 1 % (0-0); Monocytes 3 % (0-10); Neutrophil 61 % (42-75); Platelet Count 373 thou/uL (130-400); Platelet Morphology Comment Appears Adequate; Polychromasia MODERATE = 3-4 cells (100X) (0-2/hpf); RBC Distribution Width 14.1 % (11.5-14.5); Red Blood Cell (RBC) Count 2.94 mill/uL (4.20-5.40); White Blood Cell (WBC) Count 9.3 thou/uL (4.8-10.8)
[2021-04-02] MEDS: HumaLOG 300 UNITS/3 ML VIAL SC PRN (06:00)
[2021-04-02] MEDS: Pantoprazole 40 MG VIAL IVP SCH ×2 (06:00→17:38)
[2021-04-02] MEDS ORDERED: Fentanyl CADD 100 ML ONE ×2 (07:49→18:20)
[2021-04-02] MEDS: Fentanyl CADD 100 ML IV SCH ×2 (07:51→18:23)
[2021-04-02] MEDS: Ascorbic Acid 500 mg Chewable Tablet PO SCH ×2 (08:55→09:15)
[2021-04-02] MEDS: methylPREDNISolone Sod Succ 40 MG VIAL IVP SCH ×2 (09:15→20:55)
[2021-04-02] MEDS: Zinc Sulfate 220 MG CAP PO SCH (09:15)
[2021-04-02] MEDS: Enoxaparin Sodium 80 MG/0.8 ML SYRINGE SC SCH ×2 (09:15→20:54)
[2021-04-02] MEDS: Aspirin Chewable 81 MG TAB PO SCH (09:15)
[2021-04-02] MEDS: Lorazepam 2 MG/ML VIAL SLOW IVP PRN ×3 (10:48→22:27)
[2021-04-02] MEDS: Sterile Water 10 ML VIAL IVP PRN (10:48)
[2021-04-02] MEDS: Cholecalciferol 1,000 UNITS (25 MCG) TAB PO SCH (20:56)
[2021-04-02] MEDS: Morphine 2 MG/ML VIAL SLOW IVP PRN (22:12)
[2021-04-03] MEDS: Polyethylene Glycol OPTH DROP 15 ML BOT EA EYE SCH ×6 (01:34→21:05)
[2021-04-03] MEDS: Propofol 1,000 MG/100 ML VIAL IV PRN ×6 (02:33→22:15)
[2021-04-03 04:35] LABS: Anion Gap 13 mmol/L (10-20); BUN (Urea Nitrogen) 23 mg/dL (9.8-20.1); Calc. Creatinine Clearance 181 mL/min (70-130); Calcium 8.2 mg/dL (7.8-10.44); Carbon Dioxide 27 mmol/L (23-31); Chloride 103 mmol/L (98-107); Glucose 167 mg/dL (80-115); Potassium 3.6 mmol/L (3.5-5.1); Sodium 139 mmol/L (136-145)
[2021-04-03 04:36] LABS: Hemoglobin 9.6 g/dL (12.0-16.0); MDiff Complete? YES; Mean Corpuscular HGB CONC 33.1 g/dL (32.0-36.0); Mean Corpuscular Hemoglobin 33.2 pg (27.0-31.0); Mean Platelet Volume 6.9 fL (7.4-10.4); Platelet Count 362 thou/uL (130-400); RBC Distribution Width 13.9 % (11.5-14.5); Red Blood Cell (RBC) Count 2.88 mill/uL (4.20-5.40)
[2021-04-03 04:37] LABS: Band 18 % (5-11); Lymphocytes 4 % (21-51); Monocytes 1 % (0-10); Neutrophil 77 % (42-75)
[2021-04-03] MEDS: Fentanyl CADD 100 ML IV SCH ×2 (04:53→16:02)
[2021-04-03] MEDS: Pantoprazole 40 MG VIAL IVP SCH ×2 (05:21→18:23)
[2021-04-03] MEDS: Zinc Sulfate 220 MG CAP PO SCH (08:35)
[2021-04-03] MEDS: Aspirin Chewable 81 MG TAB PO SCH (08:35)
[2021-04-03] MEDS: Ascorbic Acid 500 mg Chewable Tablet PO SCH ×2 (08:36→21:03)
[2021-04-03] MEDS: Enoxaparin Sodium 80 MG/0.8 ML SYRINGE SC SCH ×2 (08:36→21:03)
[2021-04-03] MEDS: methylPREDNISolone Sod Succ 40 MG VIAL IVP SCH ×2 (08:37→20:05)
[2021-04-03] MEDS: Lorazepam 2 MG/ML VIAL SLOW IVP PRN ×7 (08:59→22:32)
[2021-04-03] MEDS: Sterile Water 10 ML VIAL IVP PRN ×5 (09:10→22:32)
[2021-04-03] MEDS: Vecuronium 10 MG VIAL IV PRN ×6 (09:10→22:32)
[2021-04-03] MEDS: niCARdipine 50 MG in Sodium Chloride 0.9% 250 ML 230 ML IV SCH ×2 (10:02→20:17)
[2021-04-03] MEDS ORDERED: Furosemide 40 MG/4 ML VIAL SLOW IVP SCH (10:15)
[2021-04-03 11:02] LABS: Lactic Acid 1.9 mmol/L (0.5-2.2)
[2021-04-03] MEDS: HumaLOG 300 UNITS/3 ML VIAL SC PRN ×2 (13:02→22:34)
[2021-04-03] MEDS: Metoprolol Tartrate 5 MG/5 ML VIAL IVP PRN (13:21)
[2021-04-03 20:19] LABS: Actual Bicarbonate (HCO3a) 29.6 mEq/L (22-28); Base Excess (BEa) 0.9 mEq/L (-2.0 to +3.0); Calcium, Ionized (arterial) 1.12 mmol/L (1.12-1.30); Hemoglobin (Hb) 11.8 g/dL (12.0-16.0); Potassium - ABG Lab 3.29 mmol/L (3.70-5.30)
[2021-04-03 20:36] LABS: pH, Arterial 7.25 (7.35-7.45)
[2021-04-03 20:37] LABS: O2 Tension (PaO2), arterial 35.6 mmHg (> 80.0); Puncture Site RRA
[2021-04-03] MEDS: Acetaminophen 650 MG/20.3 ML UDCUP PO PRN (21:02)
[2021-04-03] MEDS: Cholecalciferol 1,000 UNITS (25 MCG) TAB PO SCH (21:03)
[2021-04-03] MEDS ORDERED: Sterile Water 20 ML ONE (22:14)
[2021-04-04] MEDS: Polyethylene Glycol OPTH DROP 15 ML BOT EA EYE SCH ×6 (01:10→22:06)
[2021-04-04] MEDS: Lorazepam 2 MG/ML VIAL SLOW IVP PRN ×7 (01:13→22:03)
[2021-04-04] MEDS: Sterile Water 10 ML VIAL IVP PRN ×7 (01:14→22:03)
[2021-04-04] MEDS: Vecuronium 10 MG VIAL IV PRN ×7 (01:14→22:03)
[2021-04-04 04:41] LABS: Anion Gap 14 mmol/L (10-20); BUN (Urea Nitrogen) 31 mg/dL (9.8-20.1); Calc. Creatinine Clearance 138 mL/min (70-130); Calcium 8.3 mg/dL (7.8-10.44); Carbon Dioxide 30 mmol/L (23-31); Chloride 100 mmol/L (98-107); Glucose 164 mg/dL (80-115); Potassium 3.5 mmol/L (3.5-5.1); Sodium 140 mmol/L (136-145)
[2021-04-04 04:45] LABS: Band 57 % (5-11); Hemoglobin 9.8 g/dL (12.0-16.0); Lymphocytes 3 % (21-51); MDiff Complete? YES; Mean Corpuscular HGB CONC 32.4 g/dL (32.0-36.0); Mean Corpuscular Hemoglobin 32.7 pg (27.0-31.0); Mean Platelet Volume 7.2 fL (7.4-10.4); Metamyelocyte 1 % (0-0); Monocytes 3 % (0-10); Neutrophil 36 % (42-75); Platelet Count 340 thou/uL (130-400); Red Blood Cell (RBC) Count 3.01 mill/uL (4.20-5.40); White Blood Cell (WBC) Count 8.9 thou/uL (4.8-10.8)
[2021-04-04] MEDS ORDERED: Fentanyl CADD 100 ML ONE (04:59)
[2021-04-04] MEDS: Fentanyl CADD 100 ML IV SCH (05:04)
[2021-04-04] MEDS: Pantoprazole 40 MG VIAL IVP SCH ×2 (05:08→18:09)
[2021-04-04] MEDS: HumaLOG 300 UNITS/3 ML VIAL SC PRN ×4 (05:46→22:31)
[2021-04-04] MEDS ORDERED: Furosemide 40 MG/4 ML VIAL SLOW IVP SCH (08:30)
[2021-04-04] MEDS ORDERED: Potassium Chloride 40 MEQ in Sodium Chloride 0.9% 250 ML 250 ML IVPB SCH (08:30)
[2021-04-04] MEDS: Enoxaparin Sodium 80 MG/0.8 ML SYRINGE SC SCH ×2 (08:56→22:02)
[2021-04-04] MEDS: Ascorbic Acid 500 mg Chewable Tablet PO SCH ×2 (08:57→22:00)
[2021-04-04] MEDS: Aspirin Chewable 81 MG TAB PO SCH (08:57)
[2021-04-04] MEDS: Zinc Sulfate 220 MG CAP PO SCH (08:57)
[2021-04-04] MEDS: methylPREDNISolone Sod Succ 40 MG VIAL IVP SCH ×2 (08:58→22:03)
[2021-04-04 15:45] LABS: Potassium 4.6 mmol/L (3.5-5.1)
[2021-04-04] MEDS: Metoprolol Tartrate 5 MG/5 ML VIAL IVP PRN (17:26)
[2021-04-04] MEDS: Propofol 1,000 MG/100 ML VIAL IV PRN (20:04)
[2021-04-04] MEDS: Cholecalciferol 1,000 UNITS (25 MCG) TAB PO SCH (22:05)
[2021-04-05] MEDS ORDERED: Fentanyl CADD 100 ML ONE ×2 (00:31→20:05)
[2021-04-05] MEDS: Fentanyl CADD 100 ML IV SCH (00:37)
[2021-04-05] MEDS: Vecuronium 10 MG VIAL IV PRN ×5 (00:39→22:29)
[2021-04-05] MEDS: Sterile Water 10 ML VIAL IVP PRN ×5 (00:39→22:29)
[2021-04-05] MEDS: Lorazepam 2 MG/ML VIAL SLOW IVP PRN ×5 (00:39→22:29)
[2021-04-05] MEDS: Polyethylene Glycol OPTH DROP 15 ML BOT EA EYE SCH ×6 (03:54→19:46)
[2021-04-05] MEDS: HumaLOG 300 UNITS/3 ML VIAL SC PRN ×2 (04:13→17:52)
[2021-04-05] MEDS: Propofol 1,000 MG/100 ML VIAL IV PRN ×3 (04:33→21:20)
[2021-04-05 04:43] LABS: Hemoglobin 10.6 g/dL (12.0-16.0); Mean Corpuscular HGB CONC 31.7 g/dL (32.0-36.0); Mean Corpuscular Hemoglobin 32.7 pg (27.0-31.0); Platelet Count 381 thou/uL (130-400); RBC Distribution Width 14.1 % (11.5-14.5); Red Blood Cell (RBC) Count 3.23 mill/uL (4.20-5.40); White Blood Cell (WBC) Count 4.4 thou/uL (4.8-10.8)
[2021-04-05 04:58] LABS: Anion Gap 13 mmol/L (10-20); BUN (Urea Nitrogen) 45 mg/dL (9.8-20.1); Calc. Creatinine Clearance 135 mL/min (70-130); Calcium 8.6 mg/dL (7.8-10.44); Carbon Dioxide 31 mmol/L (23-31); Chloride 100 mmol/L (98-107); Glucose 181 mg/dL (80-115); Potassium 4.2 mmol/L (3.5-5.1); Sodium 140 mmol/L (136-145)
[2021-04-05] MEDS: Pantoprazole 40 MG VIAL IVP SCH ×2 (05:24→17:55)
[2021-04-05 06:24] LABS: Band 44 % (5-11); Lymphocytes 4 % (21-51); MDiff Complete? YES; Myelocyte 1 % (0-0); Neutrophil 51 % (42-75)
[2021-04-05] MEDS ORDERED: Fentanyl BOLUS 250 ML IVPB PRN (07:42)
[2021-04-05] MEDS ORDERED: Fentanyl CADD 100 ML IV SCH (07:45)
[2021-04-05] MEDS: Enoxaparin Sodium 80 MG/0.8 ML SYRINGE SC SCH ×2 (09:12→19:46)
[2021-04-05] MEDS: Aspirin Chewable 81 MG TAB PO SCH (09:12)
[2021-04-05] MEDS: Morphine 2 MG/ML VIAL SLOW IVP PRN ×2 (09:12→13:11)
[2021-04-05] MEDS: Ascorbic Acid 500 mg Chewable Tablet PO SCH ×2 (09:13→19:45)
[2021-04-05] MEDS: methylPREDNISolone Sod Succ 40 MG VIAL IVP SCH ×2 (09:13→19:46)
[2021-04-05] MEDS: Zinc Sulfate 220 MG CAP PO SCH (09:13)
[2021-04-05] MEDS ORDERED: Vancomycin 1 GM in Premix Bag 1 BAG IVPB SCH (11:00)
[2021-04-05] MEDS: VANCOMYCIN 2 GRAM/400 ML BAG 2 GM in Premix Bag 1 BAG IVPB SCH ×2 (11:45→22:30)
[2021-04-05] MEDS: Acetaminophen 650 MG/20.3 ML UDCUP PO PRN (14:48)
[2021-04-05] MEDS ORDERED: Micafungin 100 MG in Sodium Chloride 0.9% 100 ML IVPB SCH (18:30)
[2021-04-05] MEDS ORDERED: MEROPENEM 1 GM/50 ML 1 GM in Premix Bag 1 BAG IVPB SCH (18:45)
[2021-04-05] MEDS: Cholecalciferol 1,000 UNITS (25 MCG) TAB PO SCH (19:45)
[2021-04-05] MEDS ORDERED: Meropenem 2 GM in Admixture Fee 1 EACH IVPB SCH (22:00)
[2021-04-06] MEDS: Polyethylene Glycol OPTH DROP 15 ML BOT EA EYE SCH ×4 (01:22→14:05)
[2021-04-06] MEDS: MEROPENEM 1 GM/50 ML 1 GM in Premix Bag 1 BAG IVPB SCH ×2 (01:23→08:32)
[2021-04-06] MEDS: Propofol 1,000 MG/100 ML VIAL IV PRN (05:04)
[2021-04-06] MEDS: Pantoprazole 40 MG VIAL IVP SCH (05:04)
[2021-04-06] MEDS: Lorazepam 2 MG/ML VIAL SLOW IVP PRN (05:05)
[2021-04-06] MEDS: Sterile Water 10 ML VIAL IVP PRN (05:05)
[2021-04-06] MEDS: Vecuronium 10 MG VIAL IV PRN (05:05)
[2021-04-06] MEDS: HumaLOG 300 UNITS/3 ML VIAL SC PRN (05:05)
[2021-04-06 05:47] LABS: Anion Gap 14 mmol/L (10-20); BUN (Urea Nitrogen) 67 mg/dL (9.8-20.1); Calc. Creatinine Clearance 98 mL/min (70-130); Calcium 8.3 mg/dL (7.8-10.44); Carbon Dioxide 30 mmol/L (23-31); Chloride 101 mmol/L (98-107); Glucose 245 mg/dL (80-115); Potassium 4.7 mmol/L (3.5-5.1); Sodium 140 mmol/L (136-145)
[2021-04-06 06:13] LABS: Band 51 % (5-11); Eosinophils 1 % (0-10); Hemoglobin 10.6 g/dL (12.0-16.0); Lymphocytes 10 % (21-51); MDiff Complete? YES; Mean Corpuscular Hemoglobin 30.8 pg (27.0-31.0); Mean Platelet Volume 7.3 fL (7.4-10.4); Metamyelocyte 6 % (0-0); Monocytes 1 % (0-10); Myelocyte 4 % (0-0); Neutrophil 27 % (42-75); Nucleated RBC 2 % (0); Platelet Count 396 thou/uL (130-400); RBC Distribution Width 14.4 % (11.5-14.5); Red Blood Cell (RBC) Count 3.45 mill/uL (4.20-5.40); White Blood Cell (WBC) Count 5.7 thou/uL (4.8-10.8)
[2021-04-06 07:33] VITALS: BP 120/63
[2021-04-06] MEDS: Acetaminophen 650 MG/20.3 ML UDCUP PO PRN (08:30)
[2021-04-06] MEDS: Ascorbic Acid 500 mg Chewable Tablet PO SCH (08:31)
[2021-04-06] MEDS: Zinc Sulfate 220 MG CAP PO SCH (08:31)
[2021-04-06] MEDS: Enoxaparin Sodium 80 MG/0.8 ML SYRINGE SC SCH (08:31)
[2021-04-06] MEDS: Aspirin Chewable 81 MG TAB PO SCH (08:31)
[2021-04-06] MEDS: methylPREDNISolone Sod Succ 40 MG VIAL IVP SCH (08:32)
[2021-04-06] MEDS: VANCOMYCIN 2 GRAM/400 ML BAG 2 GM in Premix Bag 1 BAG IVPB SCH (09:06)
[2021-04-06] MEDS ORDERED: Norepinephrine 8 MG/0.9% NS 0 ML ONE (10:08)
[2021-04-06] MEDS ORDERED: Norepinephrine 8 MG/0.9% NS 250 ML ONE (12:04)
[2021-04-06 12:07] VITALS: BMI 40.5
[2021-04-06] MEDS ORDERED: Norepinephrine 8 MG/0.9% NS 250 ML IVPB SCH (13:30)
[2021-04-06 13:31] VITALS: TEMP 97
== END 2021-04-06 12:35 | disposition expired | DRG 207 ==
LOC: IMCU/EMU 09:55 → CCU 03-09 12:49
PROVIDERS: ADMIT Internal Medicine; ATTEND Internal Medicine
PROC: 8E0ZXY6 Isolation (ICD-10-PCS; principal; 2021-02-27)
PROC: XW033E5 Introduction of Remdesivir Anti-infective into Peripheral Vein, Percutaneous Approach, New Technology Group 5 (ICD-10-PCS; 2021-02-27)
PROC: 5A09457 Assistance with Respiratory Ventilation, 24-96 Consecutive Hours, Continuous Positive Airway Pressure (ICD-10-PCS; 2021-03-07)
PROC: 5A1945Z Respiratory Ventilation, 24-96 Consecutive Hours (ICD-10-PCS; 2021-03-09)
PROC: 0BH18EZ Insertion of Endotracheal Airway into Trachea, Via Natural or Artificial Opening Endoscopic (ICD-10-PCS; 2021-03-09)
PROC: 5A1955Z Respiratory Ventilation, Greater than 96 Consecutive Hours (ICD-10-PCS; 2021-03-13)
DX: U07.1 COVID-19 (principal); J12.82 Pneumonia due to coronavirus disease 2019; J80 Acute respiratory distress syndrome; J15.212 Pneumonia due to Methicillin resistant Staphylococcus aureus; Z68.41 Body mass index [BMI] 40.0-44.9, adult; E87.3 Alkalosis; F41.9 Anxiety disorder, unspecified; Z66 Do not resuscitate; F43.0 Acute stress reaction; R74.01 Elevation of levels of liver transaminase levels; E66.01 Morbid (severe) obesity due to excess calories; R03.0 Elevated blood-pressure reading, without diagnosis of hypertension; D72.829 Elevated white blood cell count, unspecified; R73.9 Hyperglycemia, unspecified; T38.0X5A Adverse effect of glucocorticoids and synthetic analogues, initial encounter; D64.9 Anemia, unspecified; K59.00 Constipation, unspecified; Z88.1 Allergy status to other antibiotic agents
CPT/HCPCS: 36415; 36416; 36600; 71045; 80048; 80053; 80202; 82565; 82728; 82805; 83036; 83605; 83735; 83880; 84100; 84484; 85007; 85014; 85018; 85025; 85027; 85049; 85300; 85362; 85379; 85384; 85610; 85730; 86140; 87040; 87070; 87076; 87077; 87086; 87149; 87186; 87205; 93005; 93010; 93306; 93970; 94002; 94003; 94660; C9113; J0360; J1650; J1815; J1940; J1956; J2060; J2185; J2248; J2270; J2704; J2920; J2930; J3010; J3370; J3475; J3480; J3490; J7050